=== PATIENT | female | born 2000 | race Caucasian/White ===

== ENCOUNTER 2022-02-04 19:15 | Emergency (ER) | payer MEDICAID, SELFPAY ==
[2022-02-04 19:52] VITALS: BP 121/79; PULSE 70; RESP 16; TEMP 36.8; O2SAT 98; BMI 24.0
[2022-02-04 20:21] LABS: COVID-19 Test Negative (Negative); IDNOW Serial# 16C4AD1C
[2022-02-04 20:23] LABS: IDNOW Serial# BCCEAD1C; Influenza A Negative (Negative); Influenza B2 Negative (Negative); Strep A Nucleic Acid Negative (Negative)
[2022-02-04 22:03] VITALS: BP 119/71; PULSE 61; RESP 14; TEMP 36.9; O2SAT 99
--- NOTE | 2022-02-04 22:28 | ED_ITS ---
HPI - URI/Sore Throat General Chief Complaint: Upper Respiratory Symptoms Stated Complaint: sore throat, chest pain, headaches bodyaches Time Seen by Provider: 02/04/22 21:49 Source: patient Mode of arrival: ambulatory Limitations: no limitations History of Present Illness HPI Narrative: Patient having cold symptoms with sore throat running nose congested coughing 3- 4 days no other family member sick or shortness of breath Related Data Previous Rx's Medication Instructions Recorded cefuroxime axetil 500 mg tablet 500 mg PO BID 7 days #14 tabs 02/04/22 tobramycin 0.3 % eye drops 2 drp ophthalmic (eye) Q4H #5 mL 02/04/22 Allergies Allergy/AdvReac Type Severity Reaction Status Date / Time No Known Allergies Allergy Unverified 11/28/19 17:02 [No Known Allergies*] Review of Systems Review of Systems: Yes all other systems are reviewed and are negative [facility] Social History Social History Advance Directives: No Advance Directives Information Provided: No Physical Exam Vital Signs: Vital Signs: Last Vital Signs Temp 98.4 F 02/04/22 22:03 Pulse 61 02/04/22 22:03 Resp 14 02/04/22 22:03 BP 119/71 02/04/22 22:03 Pulse Ox 99 02/04/22 22:03 O2 Del Method 02/04/22 22:03 BMI result Body Mass Index 24.0 Appearance: Alert. Oriented X3. No acute distress. Eyes: PERRLA, right conjunctiva injected with slight purulent discharge ENT: Pharynx normal. Oral Mucosa moist clear rhinorrhea Neck: Normal inspection. Neck supple. CVS: Normal heart rate and rhythm. Pulses normal. Respiratory: No respiratory distress. Equal air entry bilateral, no wheezing/rales/rhonchi Abdomen: Soft and nontender. Bowel sounds are present, no mass palpable, no CVA tenderness Skin: Skin warm and dry. Normal skin color. Normal skin turgor. Extremities: No lower extremity edema. No calf tenderness Neuro: Oriented X 3. No motor deficit. Medications Administered Discontinued Medications Generic Name Dose Route Start Last Admin Trade Name Freq PRN Reason Stop Dose Admin Cefuroxime Axetil 500 mg 02/04/22 22:30 02/04/22 22:47 Cefuroxime Axetil 500 Mg Tablet PO 02/04/22 22:31 500 mg ONCE ONE Administration Tobramycin Sulfate 2 drop 02/04/22 22:40 02/04/22 22:47 Tobramycin Sulfate 0.3% Vianey Op 5 Ml Btl EYE-RIGHT 02/04/22 22:41 2 drop ONCE ONE Administration MDM - URI/Sore Throat MDM Narrative Medical decision making narrative: Patient with cold symptoms COVID flu RSV strep negative will give patient Ceftin as patient has symptoms advised to follow-up with PCP Differential Diagnosis Differential diagnosis: Likely upper respiratory infection Lab Data Attestation: I reviewed the patient's lab results. Labs: Lab Results 02/04/22 02/04/22 02/04/22 Range/Units 19:56 19:56 19:56 COVID-19 (GIOVANNA) Negative (Negative) COVID-19 Clin Com See Note Influenza Type A (CASSANDRA) Negative (Negative) Influenza Type B (CASSANDRA) Negative (Negative) Influenza A & B Note See Note S. pyogenes GrpA CASSANDRA Negative (Negative) Discharge Plan Discharge Clinical Impression: Upper respiratory infection, Conjunctivitis Patient Disposition: Home, Self-Care Additional Instructions: Keep hydrated Drink plenty of fluids Cough drops as advised Take antibiotic as prescribed Prescriptions: New cefuroxime axetil 500 mg tablet 500 mg PO BID 7 Days Qty: 14 0RF tobramycin 0.3 % drops 2 drp ophthalmic (eye) Q4H Qty: 5 0RF Interventions: ED Discharge Assessment Last Done: 02/04/22 22:50 Discharge Date/Time: 02/04/22 22:52
[2022-02-04] MEDS: Tobramycin Sulfate 0.3% Sol Op 5 ML BTL 2 DROP EYE-RIGHT (22:47)
== END 2022-02-04 22:52 | disposition home or self-care (01) ==
PROVIDERS: Emergency Provider Internal Medicine; PCP Registered Nurse
DX: J06.9 Acute upper respiratory infection, unspecified (principal); H10.9 Unspecified conjunctivitis; Z20.822 Contact with and (suspected) exposure to COVID-19
CPT/HCPCS: 36415; 87502; 87635; 87651; 99283

== ENCOUNTER 2022-02-16 11:54 | Outpatient (REF) | payer MEDICAID, SELFPAY ==
[2022-02-16 13:09] LABS: Hematocrit 37.3 % (37.0-47.0); Hemoglobin 11.7 g/dl (12.0-16.0); Mean Corpuscular HGB Conc 31.4 g/dl (31.0-35.0); Mean Corpuscular Volume 73.4 fL (80.0-98.0); Mean Platelet Volume 9.7 fL (9.4-12.3); Platelet Count 422 X10*3/uL (160-400); Red Blood Count 5.08 X10*6/uL (4.20-5.50); Red Cell Distribution Width 13.7 % (11.0-16.0); White Blood Count 10.5 X10*3/uL (4.8-10.8)
[2022-02-16 15:12] LABS: Alanine Aminotransferase 17 U/L (0-31); Albumin Level 4.8 g/dL (3.5-5.0); Alkaline Phosphatase 87 U/L (39-117); Anion Gap 13 (12-20); Aspartate Amino Transferase 22 U/L (5-31); Bilirubin Direct < 0.2 mg/dL (0.0-0.5); Bilirubin Total 0.2 mg/dL (0.0-1.0); Blood Urea Nitrogen 6 mg/dL (9-16); C Reactive Protein 1.43 mg/dL (< or = 0.50); Calcium 9.8 mg/dL (8.4-10.2); Carbon Dioxide 24 mmol/L (22-29); Chloride 105 mmol/L (96-108); Estimated Glomerular Filt Rate > 60; Glucose Random 75 mg/dL (60-115); Iron 14 mcg/dL (30-160); Lipase 25 U/L (8-78); Percent Iron Saturation 5 % (15-50); Potassium 4.2 mmol/L (3.3-5.1); Sodium 138 mmol/L (135-145); TSH reflex Free T4 0.84 uIU/mL (0.32-4.0); Total Iron Binding Capacity 281 mcg/dL (228-428); Total Protein 8.4 g/dL (6.5-8.0); Unsaturated Iron Binding 267 ug/dL
[2022-02-16 15:25] LABS: Folate 10.3 ng/mL (> or = 4.0); Vitamin B12 627 pg/mL (200-900)
[2022-02-17 14:04] LABS: Transglutaminase Ab IgG <1.0 U/mL; Transglutaminase IgA <1.0 U/mL
[2022-02-17 14:28] LABS: H Pylori Breath Test Negative (Negative)
[2022-02-20 16:38] LABS: Vitamin D 25-OH, D2 <4 ng/mL; Vitamin D 25-OH, D3 20 ng/mL; Vitamin D 25-OH, Total 20 ng/mL (30-100)
== END 2022-02-16 11:55 | disposition home or self-care (01) ==
LOC: HO.LAB 11:54
PROVIDERS: PCP Registered Nurse; Visit Provider Nurse Practitioner Family
DX: K58.9 Irritable bowel syndrome, unspecified (principal); E55.9 Vitamin D deficiency, unspecified; K92.2 Gastrointestinal hemorrhage, unspecified; R10.9 Unspecified abdominal pain; K59.00 Constipation, unspecified; K21.9 Gastro-esophageal reflux disease without esophagitis; R17 Unspecified jaundice; R19.7 Diarrhea, unspecified
CPT/HCPCS: 36415; 80053; 82248; 82306; 82607; 82746; 83013; 83540; 83690; 84443; 85027; 86140; 86364; 99202

== ENCOUNTER 2022-02-19 | Outpatient (REF) | payer MEDICAID, SELFPAY ==
[2022-02-19 13:14] LABS: CDiff Gene PCR NEGATIVE (Negative)
[2022-02-20 12:16] LABS: Campylobacter Not Detected (Not Detect.)
[2022-02-20 12:17] LABS: Adenovirus F 40/41 Not Detected (Not Detect.); Astrovirus Not Detected (Not Detect.); Cryptosporidium Not Detected (Not Detect.); Cyclospora cayetanensis Not Detected (Not Detect.); E. coli EAEC Not Detected (Not Detect.); E. coli EPEC Not Detected (Not Detect.); E. coli ETEC Not Detected (Not Detect.); E. coli STEC Not Detected (Not Detect.); Entamoeba histolytica Not Detected (Not Detect.); Giardia lamblia Not Detected (Not Detect.); Norovirus GI/GII Not Detected (Not Detect.); Plesiomonas shigelloides Not Detected (Not Detect.); Rotavirus A Not Detected (Not Detect.); Sapovirus Not Detected (Not Detect.); Shigella sp./EIEC Not Detected (Not Detect.); Vibrio Not Detected (Not Detect.); Vibrio Cholerae Not Detected (Not Detect.); Yersinia enterocolitica Not Detected (Not Detect.)
[2022-02-20 12:19] LABS: Salmonella Detected (Not Detect.)
== END 2022-02-19 00:01 | disposition home or self-care (01) ==
LOC: HO.LNP
PROVIDERS: Visit Provider Nurse Practitioner Family
DX: R19.7 Diarrhea, unspecified (principal); R10.9 Unspecified abdominal pain
CPT/HCPCS: 82656; 82705; 87177; 87209; 87493; 87507

== ENCOUNTER → 2022-03-23 14:49 | Outpatient (BNVA) | payer MEDICAID, SELFPAY | PROVIDERS: PCP Registered Nurse; Visit Provider Nurse Practitioner Family | DX: K21.9 Gastro-esophageal reflux disease without esophagitis (principal); D64.9 Anemia, unspecified; A09 Infectious gastroenteritis and colitis, unspecified | CPT/HCPCS: 99212 ==

== ENCOUNTER 2022-05-13 14:25 | Outpatient (REF) | payer MEDICAID, SELFPAY ==
--- NOTE | ~2022-05-13 | US_ITS ---
EXAMINATION: US BREAST DIAGNOSTIC, RIGHT CLINICAL INFORMATION: Right breast pain. Patient had rash 3 months ago which was treated with improvement. Breast feels sensitive. COMPARISON: None. TECHNIQUE: Ultrasound of the breast is performed with real-time leblanc scale imaging and color Doppler. FINDINGS: There is no focal suspicious finding. There is no solid mass, architectural abnormality, duct ectasia, or edema in the soft tissue planes. Results are discussed with the patient at time of visit. US/US breast RT limited IMPRESSION: No suspicious right breast ultrasound findings identified. ASSESSMENT: BI-RADS 1: Negative RECOMMENDATION: Clinical follow-up. Begin yearly screening mammography at age 40.
== END 2022-05-13 14:26 | disposition home or self-care (01) ==
LOC: HO.MAMMO 14:25
PROVIDERS: Visit Provider Registered Nurse
DX: N64.4 Mastodynia (principal)
CPT/HCPCS: 76642

== ENCOUNTER 2022-06-10 13:58 | Outpatient (REF) | payer MEDICAID, SELFPAY | END 2022-06-10 13:59 | disposition home or self-care (01) | LOC: HO.LNP 13:58 | PROVIDERS: PCP Registered Nurse; Visit Provider Advanced Practice Midwife | DX: Z01.419 Encounter for gynecological examination (general) (routine) without abnormal findings (principal) | CPT/HCPCS: 0353U; 86780; 86803; 87340; 87389; 87480; 87510; 87660; 88142 ==

== ENCOUNTER 2022-06-10 15:29 | Outpatient (REF) | payer MEDICAID, SELFPAY ==
[2022-06-10 18:00] LABS: CT PCR NOT DETECTED (Not Detect.); NG PCR NOT DETECTED (Not Detect.)
[2022-06-11 10:13] LABS: BV Int Neg Control Negative (Negative)
[2022-06-11 10:14] LABS: BV Int Pos Control Positive (Positive)
[2022-06-13 08:25] LABS: Syphilis Screen Nonreactive (Nonreactive)
[2022-06-13 08:28] LABS: HIV AB/AG Nonreactive (Nonreactive); HIV Num 1 0.07 S/CO (0.00-0.99); Hepatitis B Surface Antigen Negative (Negative); ~HepC Num1 0.23 S/CO (0.00-0.79); ~Hepatitis C Antibody Nonreactive (Nonreactive)
== END 2022-06-10 15:30 | disposition home or self-care (01) ==
LOC: HO.LAB 15:29
PROVIDERS: PCP Registered Nurse; Visit Provider Advanced Practice Midwife
DX: Z11.3 Encounter for screening for infections with a predominantly sexual mode of transmission (principal); Z11.4 Encounter for screening for human immunodeficiency virus [HIV]
CPT/HCPCS: 0353U; 86780; 86803; 87340; 87389; 87480; 87510; 87660

== ENCOUNTER 2022-06-12 21:37 | Emergency (ER) | payer MEDICAID, SELFPAY ==
--- NOTE | ~2022-06-12 | US_ITS ---
EXAMINATION: US PELVIS CLINICAL INFORMATION: Right lower quadrant pain COMPARISON: Concurrent CT abdomen/pelvis TECHNIQUE: Ultrasound of the pelvis is performed using both transabdominal and transvaginal transducers along with Doppler. Transvaginal imaging is performed due to inadequate visualization transabdominally. FINDINGS: Uterus: The uterus is anteverted and measures 8.6 x 4.8 x 5.2 cm. The double wall endometrial thickness is 14 mm. The uterus is smooth in contour and has normal myometrial echogenicity. No visible fibroid. Adnexa: Both ovaries are visualized. There is normal color flow to the adnexa. There is no ovarian torsion. There is no pelvic ascites or fluid collection. Right ovary measures 4.3 x 3.4 x 2 point cm. There are 2 cysts within the right ovary. One of these contains internal echoes dependent debris and measures 2.9 cm favored to represent a hemorrhagic cyst. The other is simple in appearance measuring 2.7 cm. Left ovary measures 2.7 x 1.4 x 2.2 cm. There is an 8.5 x 5.5 x 6.0 cm simple cyst emanating from the left ovary. US/US pelvic complete IMPRESSION: * No evidence of ovarian torsion. * There are 2 cysts within the right ovary, one of which contains internal echoes dependent debris, measuring 2.9 cm. This is favored to represent a hemorrhagic cyst. * There is a 8.5 cm simple cyst emanating from the left ovary. Given the size, and the possibility of incomplete characterization, ACR recommends short interval follow-up ultrasound, or MRI pelvis with contrast within 3 months.
--- NOTE | ~2022-06-12 | CT_ITS ---
EXAMINATION: CT ABDOMEN AND PELVIS WITH CONTRAST CLINICAL INFORMATION: Right lower quadrant pain COMPARISON: Concurrent pelvic ultrasound. TECHNIQUE: Multidetector volumetric images were obtained from the superior aspect of the liver through the pubic symphysis following administration 85 mL of Omnipaque 350 intravenous contrast. Sagittal and coronal reformatted images were obtained on the technologist's workstation. Oral contrast: No This CT examination was performed using dose optimization techniques as appropriate, variously including the following: *Automated exposure control *Adjustment of mA and/or kV according to patient size (this includes techniques or standardized protocols for targeted exams where dose is matched to indication/reason for exam; i.e. extremities or head) *Use of iterative reconstruction technique DLP: 511 mGy-cm FINDINGS: LUNG BASES: The visualized lung bases are unremarkable. LIVER, GALLBLADDER, AND BILIARY TREE: The liver is normal in size, shape, and attenuation. No focal hepatic lesion or biliary ductal dilatation is present. The gallbladder is unremarkable with no evidence of radiopaque gallstones, gallbladder wall thickening, or obvious pericholecystic inflammatory changes. PANCREAS: Unremarkable. SPLEEN: Unremarkable. ADRENAL GLANDS: Unremarkable. KIDNEYS AND URETERS: The kidneys are normal in size, shape, and attenuation. No hydronephrosis, hydroureter, or calculi seen. Minimal bilateral pelviectasis, more pronounced on the right where there is a degree of caliectasis. There is no hydroureter. Suspect this to be within physiologic norm. No perinephric stranding. BLADDER: Unremarkable. GASTROINTESTINAL TRACT: The small and large bowel are unremarkable. The appendix is patulous but air-filled and noninflamed. (See ibrahim images). ABDOMINAL WALL: No significant hernia is appreciated. LYMPH NODES: Normal. VASCULAR: Unremarkable. PELVIC VISCERA: Normal uterus. There is a left adnexal simple fluid attenuating cyst measuring 8.4 x 5.4 x 6.5 cm along the superior aspect of which is the left ovary. There are 2 cysts in the right ovary measuring 3.2 cm and 2.8 cm. The larger of the 2 appears complicated. The smaller cyst is simple in appearance. OSSEOUS STRUCTURES: No acute or suspicious osseous abnormalities. CT/CT abdomen pelvis w IV con IMPRESSION: * There are bilateral ovarian cysts, the largest of which is on the left measuring up to 8.4 cm. The concurrent pelvic ultrasound confirms that the cyst is simple in appearance, and is probably benign. ACR recommends a follow-up ultrasound in 3-6 months for cysts of this size in premenopausal patients. * Right ovarian probable hemorrhagic cyst measuring 3.2 cm. Attention on follow-up.
--- NOTE | ~2022-06-12 | US_ITS ---
EXAMINATION: US PELVIS CLINICAL INFORMATION: Right lower quadrant pain COMPARISON: Concurrent CT abdomen/pelvis TECHNIQUE: Ultrasound of the pelvis is performed using both transabdominal and transvaginal transducers along with Doppler. Transvaginal imaging is performed due to inadequate visualization transabdominally. FINDINGS: Uterus: The uterus is anteverted and measures 8.6 x 4.8 x 5.2 cm. The double wall endometrial thickness is 14 mm. The uterus is smooth in contour and has normal myometrial echogenicity. No visible fibroid. Adnexa: Both ovaries are visualized. There is normal color flow to the adnexa. There is no ovarian torsion. There is no pelvic ascites or fluid collection. Right ovary measures 4.3 x 3.4 x 2 point cm. There are 2 cysts within the right ovary. One of these contains internal echoes dependent debris and measures 2.9 cm favored to represent a hemorrhagic cyst. The other is simple in appearance measuring 2.7 cm. Left ovary measures 2.7 x 1.4 x 2.2 cm. There is an 8.5 x 5.5 x 6.0 cm simple cyst emanating from the left ovary. US/US pelvic ovarian doppler IMPRESSION: * No evidence of ovarian torsion. * There are 2 cysts within the right ovary, one of which contains internal echoes dependent debris, measuring 2.9 cm. This is favored to represent a hemorrhagic cyst. * There is a 8.5 cm simple cyst emanating from the left ovary. Given the size, and the possibility of incomplete characterization, ACR recommends short interval follow-up ultrasound, or MRI pelvis with contrast within 3 months.
[2022-06-12 21:51] VITALS: BP 123/78; PULSE 80; RESP 18; TEMP 36.6; O2SAT 98; BMI 25.7
[2022-06-12 22:42] LABS: MANUAL DIFF FLAG NO
[2022-06-12 22:46] LABS: Basophils Percent Auto 0.5 % (0-2); Eosinophils Absolute Auto 0.3 X10*3/uL (0.0-0.4); Eosinophils Percent Auto 3.4 % (0-4); Hematocrit 32.6 % (37.0-47.0); Hemoglobin 10.3 g/dl (12.0-16.0); Imm Gran Abs Auto 0.02 X10*3/uL (0.00-0.03); Imm Gran Pct Auto 0.2 % (0.0-0.4); Lymphocytes Absolute Auto 1.6 X10*3/uL (1.2-4.9); Lymphocytes Percent Auto 19.1 % (20-40); Mean Corpuscular HGB Conc 31.6 g/dl (31.0-35.0); Mean Corpuscular Hemoglobin 23.1 pg (27.0-33.0); Mean Corpuscular Volume 73.1 fL (80.0-98.0); Mean Platelet Volume 9.4 fL (9.4-12.3); Monocytes Absolute Auto 1.1 X10*3/uL (0.1-1.2); Monocytes Percent Auto 13.7 % (2-11); Neutrophils Absolute Auto 5.2 x10*3/uL (2.0-8.3); Neutrophils Percent Auto 63.1 % (45-73); Platelet Count 328 X10*3/uL (160-400); Red Blood Count 4.46 X10*6/uL (4.20-5.50); White Blood Count 8.3 X10*3/uL (4.8-10.8)
[2022-06-12 22:58] LABS: Alanine Aminotransferase 26 U/L (0-31); Albumin Level 4.4 g/dL (3.5-5.0); Alkaline Phosphatase 78 U/L (39-117); Anion Gap 11 (12-20); Aspartate Amino Transferase 22 U/L (5-31); Bilirubin Direct < 0.2 mg/dL (0.0-0.5); Bilirubin Total 0.2 mg/dL (0.0-1.0); Blood Urea Nitrogen 9 mg/dL (9-16); Calcium 9.3 mg/dL (8.4-10.2); Carbon Dioxide 24 mmol/L (22-29); Chloride 105 mmol/L (96-108); Creatinine Clr Calc Pharmacy 112.5; Estimated Glomerular Filt Rate > 60; Glucose Random 92 mg/dL (60-115); Lipase 24 U/L (8-78); Potassium 4.3 mmol/L (3.3-5.1); Sodium 136 mmol/L (135-145); Total Protein 7.5 g/dL (6.5-8.0)
[2022-06-12 23:55] VITALS: BP 116/67; PULSE 66; RESP 16; TEMP 36.7; O2SAT 97
[2022-06-13 00:01] LABS: Appearance Urine Cloudy; Color Urine Yellow; Glucose Urine UA Negative (Negative); Leukocyte Esterase Urine Trace (Negative); Nitrite Urine Negative (Negative); UMIC TRIGGER UACC YES; Urine Blood Negative (Negative); Urine Ketones Negative (Negative); Urine Protein Negative (Neg-Trace)
[2022-06-13 00:02] LABS: UPreg QC Valid YES; Urine Pregnancy NEGATIVE (NEGATIVE)
[2022-06-13 00:07] LABS: Bacteria Urine Trace (None Seen); Hyaline Casts Urine 0-2 /LPF (0-2); RBC Urine 0-2 /HPF (0-2); WBC Urine 0-5 /HPF (0-5)
--- NOTE | 2022-06-13 00:21 | ED.ABDPAIN ---
HPI - Abdominal Pain General Chief Complaint: Abdominal Pain Stated Complaint: abd pain Time Seen by Provider: 06/12/22 23:42 History of Present Illness HPI narrative: Patient is a 21-year-old female presents today with having 2 day history of abdominal pain. The pain is mainly over the right lower quadrant. It is dull. Associated with decreasing appetite. Patient from home. Her last menstrual period was early May. Patient claims is a chance she could be . There is no fever no chills. No coughing no congestion or upper respiratory symptoms. No diaphoresis. Patient is from home. No change in bowel movement. No radiation of the pain. No history kidney stones in the past. Related Data Previous Rx's Medication Instructions Recorded cholecalciferol (vitamin D3) 50 50 mcg PO DAILY #90 caps 03/23/22 mcg (2,000 unit) capsule ferrous sulfate 325 mg (65 mg 325 mg PO DAILY #90 tabs 03/23/22 iron) tablet desogestrel-e.estradiol 0.15 1 tab PO DAILY #84 tabs 06/10/22 mg-0.02 mg(21)/e.estrad 0.01 mg(5) tablet Allergies Allergy/AdvReac Type Severity Reaction Status Date / Time No Known Allergies Allergy Verified 06/12/22 21:56 [No Known Allergies*] Review of Systems Review of Systems Positive right lower quadrant pain Yes all other systems are reviewed and are negative PMFSH Past Medical History Attestation statement: The following information was validated with the patient. Medical History Alpha-thalassemia Anemia Surgical History S/P tonsillectomy and adenoidectomy Family History Family History Maternal Grandfather Prostate cancer Social History Social History Alcohol intake: never Patient Tobacco Use Status: Former Tobacco user Advance Directives: No Advance Directives Information Provided: No service: No Current occupational status: employed Current occupation: Manufacturing Current occupational exposures/hazards: No Physical Exam ED Vital Signs: Vital Signs - 24 hr 06/12/22 21:51 06/12/22 23:55 Temperature 97.9 F 98.0 F Pulse Rate 80 66 Respiratory Rate 18 16 Blood Pressure 123/78 116/67 Pulse Oximetry 98 97 Oxygen Delivery Method Room Air Room Air BMI result Body Mass Index 25.7 Appearance: Alert. Oriented X3. No acute distress. Eyes: Pupils equal, round and reactive to light. ENT: Pharynx normal. Neck: Normal inspection. Neck supple. No lymph nodes noted. No crepitus CVS: Normal heart rate and rhythm. Pulses normal. Normal S1 and S2 Respiratory: No respiratory distress. Breath sounds normal. No Wheezing. No rales Abdomen: Soft and nontender. No rigidity. No distention. good BS x4 Skin: Skin warm and dry. Normal skin color. Normal skin turgor. Extremities: No lower extremity edema. Neurovascular intact to all extremities. No Lacerations. No Rash Neuro: Oriented X 3. No motor deficit. No sensory deficit. Moving all extermities. No slurred speech Medical Decision Making Medical Decision Making [facility] Narrative: Positive lower abdominal pain. Mainly over the right lower quadrant. Patient is due for her menstruation. Her urine test was negative. No evidence for related issue. An ultrasound of the ovaries was done to rule out the possibility of torsion. CT scan of the abdomen pelvis was done to rule out the possibility of appendicitis. Patient's white count is normal. Urine showed no signs of infection. It did show blood. Less likely to be kidney stone. Currently awaiting final results of the CT scan and ultrasound. In stable condition pain is controlled. Differential Diagnosis Differential Diagnoses: The differential diagnosis associated with the presentation includes related issue, UTI, kidney stone, ovarian torsion, appendicitis Lab Data [facility] Lab Attestation statement: I reviewed the patient's lab results. 06/12/22 22:37 06/12/22 22:36 Labs: Lab Results 06/12/22 06/12/22 06/12/22 Range/Units 22:36 22:37 23:51 WBC 8.3 (4.8-10.8) X10*3/uL RBC 4.46 (4.20-5.50) X10*6/uL Hgb 10.3 L (12.0-16.0) g/dl Hct 32.6 L (37.0-47.0) % MCV 73.1 L (80.0-98.0) fL MCH 23.1 L (27.0-33.0) pg MCHC 31.6 (31.0-35.0) g/dl RDW 14.0 (11.0-16.0) % Plt Count 328 (160-400) X10*3/uL MPV 9.4 (9.4-12.3) fL Immature Gran % (Auto) 0.2 (0.0-0.4) % Neut % (Auto) 63.1 (45-73) % Lymph % (Auto) 19.1 L (20-40) % Stone % (Auto) 13.7 H (2-11) % Eos % (Auto) 3.4 (0-4) % Baso % (Auto) 0.5 (0-2) % Lymph # (Auto) 1.6 (1.2-4.9) X10*3/uL Stone # (Auto) 1.1 (0.1-1.2) X10*3/uL Eos # (Auto) 0.3 (0.0-0.4) X10*3/uL Baso # (Auto) 0.0 (0.0-0.2) X10*3/uL Abs Immat Gran (auto) 0.02 (0.00-0.03) X10*3/uL Absolute Neuts (auto) 5.2 (2.0-8.3) x10*3/uL Absolute Nucleated RBC 0.000 (0.0-0.012) X10*3/uL Nucleated RBC % (auto) 0.0 (0.0-0.2) /100WBC Sodium 136 (135-145) mmol/L Potassium 4.3 (3.3-5.1) mmol/L Chloride 105 (96-108) mmol/L Carbon Dioxide 24 (22-29) mmol/L Anion Gap 11 L (12-20) BUN 9 (9-16) mg/dL Creatinine 0.75 (0.5-1.4) mg/dL Estim Creat Clear Calc 112.5 Estimated GFR > 60 Random Glucose 92 (60-115) mg/dL Calcium 9.3 (8.4-10.2) mg/dL Total Bilirubin 0.2 (0.0-1.0) mg/dL Direct Bilirubin < 0.2 (0.0-0.5) mg/dL AST 22 (5-31) U/L ALT 26 (0-31) U/L Alkaline Phosphatase 78 (39-117) U/L Total Protein 7.5 (6.5-8.0) g/dL Albumin 4.4 (3.5-5.0) g/dL Lipase 24 (8-78) U/L Urine Color Yellow Urine Appearance Cloudy Urine pH 6.0 (5.0-9.0) Ur Specific Wayan 1.010 (1.005-1.025) Urine Protein Negative (Neg-Trace) mg/dL Urine Glucose (UA) Negative (Negative) mg/dL Urine Ketones Negative (Negative) mg/dL Urine Blood Negative (Negative) Urine Nitrite Negative (Negative) Ur Leukocyte Esterase Trace H (Negative) Urine RBC 0-2 (0-2) /HPF Urine WBC 0-5 (0-5) /HPF Ur Squamous Epith Cells 11-20 (0-2) /HPF Urine Bacteria Trace (None Seen) Hyaline Casts 0-2 (0-2) /LPF Urine Test (NEGATIVE) 06/12/22 Range/Units 23:51 WBC (4.8-10.8) X10*3/uL RBC (4.20-5.50) X10*6/uL Hgb (12.0-16.0) g/dl Hct (37.0-47.0) % MCV (80.0-98.0) fL MCH (27.0-33.0) pg MCHC (31.0-35.0) g/dl RDW (11.0-16.0) % Plt Count (160-400) X10*3/uL MPV (9.4-12.3) fL Immature Gran % (Auto) (0.0-0.4) % Neut % (Auto) (45-73) % Lymph % (Auto) (20-40) % Stone % (Auto) (2-11) % Eos % (Auto) (0-4) % Baso % (Auto) (0-2) % Lymph # (Auto) (1.2-4.9) X10*3/uL Stone # (Auto) (0.1-1.2) X10*3/uL Eos # (Auto) (0.0-0.4) X10*3/uL Baso # (Auto) (0.0-0.2) X10*3/uL Abs Immat Gran (auto) (0.00-0.03) X10*3/uL Absolute Neuts (auto) (2.0-8.3) x10*3/uL Absolute Nucleated RBC (0.0-0.012) X10*3/uL Nucleated RBC % (auto) (0.0-0.2) /100WBC Sodium (135-145) mmol/L Potassium (3.3-5.1) mmol/L Chloride (96-108) mmol/L Carbon Dioxide (22-29) mmol/L Anion Gap (12-20) BUN (9-16) mg/dL Creatinine (0.5-1.4) mg/dL Estim Creat Clear Calc Estimated GFR Random Glucose (60-115) mg/dL Calcium (8.4-10.2) mg/dL Total Bilirubin (0.0-1.0) mg/dL Direct Bilirubin (0.0-0.5) mg/dL AST (5-31) U/L ALT (0-31) U/L Alkaline Phosphatase (39-117) U/L Total Protein (6.5-8.0) g/dL Albumin (3.5-5.0) g/dL Lipase (8-78) U/L Urine Color Urine Appearance Urine pH (5.0-9.0) Ur Specific Wayan (1.005-1.025) Urine Protein (Neg-Trace) mg/dL Urine Glucose (UA) (Negative) mg/dL Urine Ketones (Negative) mg/dL Urine Blood (Negative) Urine Nitrite (Negative) Ur Leukocyte Esterase (Negative) Urine RBC (0-2) /HPF Urine WBC (0-5) /HPF Ur Squamous Epith Cells (0-2) /HPF Urine Bacteria (None Seen) Hyaline Casts (0-2) /LPF Urine Test NEGATIVE (NEGATIVE) Discharge Plan Discharge Clinical Impression: Abdominal pain Patient Disposition: Still a Patient Prescriptions: No Action ferrous sulfate 325 mg (65 mg iron) tablet 325 mg PO DAILY Qty: 90 4RF cholecalciferol (vitamin D3) 50 mcg (2,000 unit) capsule 50 mcg PO DAILY Qty: 90 3RF desog-e.estradiol/e.estradiol 0.15-0.02 mgx21 /0.01 mg x 5 tablet 1 tab PO DAILY Qty: 84 4RF
--- NOTE | 2022-06-13 00:25 | PC.NURSE ---
late entry-this rn placed 20g IV R AC. pt pending ct. pt partner at bedside at this time. pt resting on stretcher
[2022-06-13] MEDS: Ketorolac Tromethamine 30 MG/ML VIAL IVPUSH (03:14)
[2022-06-13 03:15] VITALS: BP 113/70; PULSE 67; RESP 16; TEMP 36.6; O2SAT 100
--- NOTE | 2022-06-13 03:21 | PC.NURSE ---
pt reports 6/10 pain at this time. pt medicated according to mar.
--- NOTE | 2022-06-13 03:25 | PC.NURSE ---
iv removed at time of discharge. pt ambulatory at this time. vss. skin pwd. pt provided with discharge packet. pt partner at bedside. pt verbalizes understanding of discharge plan
== END 2022-06-13 03:26 | disposition home or self-care (01) ==
PROVIDERS: Emergency Provider Emergency Medicine Emergency Medical Services; PCP Registered Nurse
DX: R10.31 Right lower quadrant pain (principal); R10.2 Pelvic and perineal pain; Z79.899 Other long term (current) drug therapy
CPT/HCPCS: 36415; 74177; 76856; 80048; 80076; 81001; 81003; 81025; 83690; 85025; 93975; 96374; 99284; J1885

== ENCOUNTER 2022-06-13 17:27 | Emergency (ER) | payer MEDICAID, SELFPAY ==
--- NOTE | ~2022-06-13 | US_ITS ---
EXAMINATION: US ABDOMEN LIMITED CLINICAL INFORMATION: Right upper quadrant/flank. COMPARISON: CT abdomen pelvis earlier today at 1:33 AM TECHNIQUE: Real-time imaging of the right upper quadrant abdominal viscera. FINDINGS: PANCREAS: The pancreas appears unremarkable, without masses or ductal dilatation, with the exception of the tail which is obscured by bowel gas. LIVER: The liver is normal in size. The liver contour is normal. There is mildly increased increased liver parenchymal echogenicity suggesting hepatic steatosis. No focal hepatic lesion. There is no intrahepatic biliary duct dilatation seen. GALLBLADDER: Normal. The gallbladder is physiologically distended without evidence of stones, sludge, polyps, wall thickening or pericholecystic fluid. COMMON BILE DUCT: Normal in caliber measuring 0.3 cm in diameter. RIGHT KIDNEY: Normal. No hydronephrosis. No renal calculi or focal parenchymal lesions. The kidney measures 11.4 cm in maximum dimension. FREE FLUID: None. US/US abdomen limited IMPRESSION: Echogenic liver suggesting hepatic steatosis.
[2022-06-13 18:00] VITALS: BP 127/64; PULSE 102; RESP 20; TEMP 37.8; O2SAT 99; BMI 25.7
--- NOTE | 2022-06-13 18:05 | ED.ABDPAIN ---
HPI - Abdominal Pain General Chief Complaint: Abdominal Pain <CHRISTELLE Akins - Last Filed: 06/13/22 18:07> Stated Complaint: abd pain <CHRISTELLE Akins - Last Filed: 06/13/22 18:07> Time Seen by Provider: 06/13/22 19:35 <CHRISTELLE Akins - Last Filed: 06/13/22 18:07> Source: patient and family (Sister) <Galilea Nur MD - Last Filed: 06/13/22 23:04> Mode of arrival: ambulatory <Galilea Nur MD - Last Filed: 06/13/22 23:04> History of Present Illness HPI narrative: This is a 21-year-old female without significant past medical history who presents with 3 days of worsening right flank/abdominal pain with associated nausea as well as vomiting and she states that this started after she was started on antibiotics by or OBGYN provider for UTI. This is not been associated with any fever, chills, dysuria. Patient endorses that she was seen here last night, she denies any history of renal colic and denies any association with her work. <Galilea Nur MD - Last Filed: 06/13/22 23:04> Related Data Home Medications: Previous Rx's Medication Instructions Recorded cholecalciferol (vitamin D3) 50 50 mcg PO DAILY #90 caps 03/23/22 mcg (2,000 unit) capsule ferrous sulfate 325 mg (65 mg 325 mg PO DAILY #90 tabs 03/23/22 iron) tablet desogestrel-e.estradiol 0.15 1 tab PO DAILY #84 tabs 06/10/22 mg-0.02 mg(21)/e.estrad 0.01 mg(5) tablet ibuprofen 600 mg tablet 600 mg PO Q6H PRN fever or pain 06/13/22 #30 tabs metronidazole 500 mg tablet 500 mg PO BID 7 days #14 tabs 06/13/22 <CHRISTELLE Akins - Last Filed: 06/13/22 18:07> Allergies/Adverse Reactions: Allergies Allergy/AdvReac Type Severity Reaction Status Date / Time No Known Allergies Allergy Verified 06/12/22 21:56 [No Known Allergies*] <CHRISTELLE Akins - Last Filed: 06/13/22 18:07> Review of Systems Review of Systems Pertinent positives and negatives as stated in HPI <Galilea Nur MD - Last Filed: 06/13/22 23:04> PMFSH Past Medical History Source: nursing notes reviewed <Galilea Nur MD - Last Filed: 06/13/22 23:04> Medical History: Medical History Alpha-thalassemia Anemia <CHRISTELLE Aikns - Last Filed: 06/13/22 18:07> Surgical History: Surgical History S/P tonsillectomy and adenoidectomy <CHRISTELLE Akins - Last Filed: 06/13/22 18:07> Family History Family History: Family History Maternal Grandfather Prostate cancer <CHRISTELLE Akins - Last Filed: 06/13/22 18:07> Social History Social History: Social History Alcohol intake: never Patient Tobacco Use Status: Former Tobacco user Smoked in Last 30 Days: No Use of substances other than those prescribed or required for medical reasons: No Advance Directives: No Advance Directives Information Provided: No Patient : No service: No Current occupational status: employed Current occupation: Manufacturing Current occupational exposures/hazards: No <CHRISTELLE Akins - Last Filed: 06/13/22 18:07> Physical Exam ED Vital Signs: Vital Signs - 24 hr 06/13/22 18:00 06/13/22 19:59 Temperature 100.0 F 98.6 F Pulse Rate 102 H 94 Respiratory Rate 20 18 Blood Pressure 127/64 108/70 Pulse Oximetry 99 99 Oxygen Delivery Method Room Air Room Air BMI result Body Mass Index 25.7 <CHRISTELLE Akins - Last Filed: 06/13/22 18:07> Vital Signs - 24 hr 06/13/22 18:00 06/13/22 19:59 Temperature 100.0 F 98.6 F Pulse Rate 102 H 94 Respiratory Rate 20 18 Blood Pressure 127/64 108/70 Pulse Oximetry 99 99 Oxygen Delivery Method Room Air Room Air BMI result Body Mass Index 25.7 VITAL SIGNS: Reviewed. GENERAL: Well developed, well nourished, in no acute distress. HEAD: Normocephalic/atraumatic EYES: PERRLA, EOMI, there is periorbital eye edema EARS: Ext canals without abnormality NOSE: Nares patent bilateral OROPHARYNX: no oral lesions noted, posterior pharynx clear NECK: Supple, no adenopathy LUNGS: Normal breath sounds. No adventitious sounds or accessory muscle use. SpO2<99> CARDIOVASCULAR: Regular rate and rhythm without noted murmurs ABDOMEN: Soft, mild pain at mid right abdomen, non-distended with bowel sounds, no CVA tenderness. MUSCULOSKELETAL: No tenderness, deformities, or effusions noted on gross inspection. EXTREMITIES: No cyanosis, clubbing or edema. SKIN: Inspection of the skin reveals no rashes NEUROLOGIC: Alert and oriented x 4. Strength and sensation to light touch were grossly intact x 4. <Galilea Nur MD - Last Filed: 06/13/22 23:04> Course Course Course Narrative: RME - 21 yo female with recently diagnosed bilateral ovarian cysts presents back to the ER with 10/10 right lower abdominal pain, nausea that restarted shortly after discharge. No improvement with iburprofen or the IV medication given here last night. <CHRISTELLE Akins - Last Filed: 06/13/22 18:07> Medical Decision Making Medical Decision Making MDM Narrative: 21-year-old female without significant past medical history was recently evaluated by her OBGYN provider and I have reviewed that note which demonstrates that in fact patient was started on control and I do not see any new prescriptions from that note. I also reviewed all documentation and testing from her visit last night at which time she had ectopic/ovarian torsion/uterine etiologies ruled out. Although there were were cyst located on each ovary there was guidance given for follow-up and patient now presents with pain once again on the right side. She denies any traumatic event. I reviewed all investigations and patient's labs are chronically stable with the exception an elevated potassium level, however this appears to be secondary to hemolysis as documented by the lab and given that the patient was recently started on Flagyl she may be experiencing nausea related with this. I will obtain an ultrasound the gallbladder but otherwise patient will be discharged home in stable condition with instructions to follow-up with her OBGYN and/or her primary care per 2052: Nursing came to me and stated that the patient does not feel that ?I know what I am talking about and is requesting a 2nd opinion. Unfortunately, there is no unavailable at this time. Will proceed with patient's workup. 2199: Review of all investigations negative for acute findings, although I suspect that the elevated potassium is secondary to hemolysis, I am repeating the BMP. 2299: Repeat BMP shows complete resolution of elevated potassium levels, although this was likely elevated from hemolysis. Combination analgesics were provided. All results discussed with the patient and she was informed that no other identified etiologies for her pain were noted. <Galilea Nur MD - Last Filed: 06/13/22 23:04> Differential Diagnosis Please see the discussion above <Galilea Nur MD - Last Filed: 06/13/22 23:04> Lab Data Please see the discussion above <Galilea Nur MD - Last Filed: 06/13/22 23:04> Result Diagrams: 06/13/22 18:25 06/13/22 18:25 <CHRISTELLE Akins - Last Filed: 06/13/22 18:07> Labs: Lab Results 06/13/22 06/13/22 06/13/22 Range/Units 18:25 18:25 18:25 WBC 9.9 (4.8-10.8) X10*3/uL RBC 4.75 (4.20-5.50) X10*6/uL Hgb 11.2 L (12.0-16.0) g/dl Hct 35.7 L (37.0-47.0) % MCV 75.2 L (80.0-98.0) fL MCH 23.6 L (27.0-33.0) pg MCHC 31.4 (31.0-35.0) g/dl RDW 14.2 (11.0-16.0) % Plt Count 348 (160-400) X10*3/uL MPV 10.5 (9.4-12.3) fL Immature Gran % (Auto) 0.3 (0.0-0.4) % Neut % (Auto) 64.0 (45-73) % Lymph % (Auto) 19.5 L (20-40) % Whitfield % (Auto) 13.6 H (2-11) % Eos % (Auto) 2.2 (0-4) % Baso % (Auto) 0.4 (0-2) % Lymph # (Auto) 1.9 (1.2-4.9) X10*3/uL Whitfield # (Auto) 1.4 H (0.1-1.2) X10*3/uL Eos # (Auto) 0.2 (0.0-0.4) X10*3/uL Baso # (Auto) 0.0 (0.0-0.2) X10*3/uL Abs Immat Gran (auto) 0.03 (0.00-0.03) X10*3/uL Absolute Neuts (auto) 6.4 (2.0-8.3) x10*3/uL Absolute Nucleated RBC 0.000 (0.0-0.012) X10*3/uL Nucleated RBC % (auto) 0.0 (0.0-0.2) /100WBC Sodium 133 L (135-145) mmol/L Potassium 5.3 H D (3.3-5.1) mmol/L Chloride 106 (96-108) mmol/L Carbon Dioxide 18 L (22-29) mmol/L Anion Gap 14 (12-20) BUN 8 L (9-16) mg/dL Creatinine 0.73 (0.5-1.4) mg/dL Estim Creat Clear Calc 115.5 Estimated GFR > 60 Random Glucose 85 (60-115) mg/dL Calcium 9.0 (8.4-10.2) mg/dL Magnesium 2.4 (1.6-2.6) mg/dL Total Bilirubin 0.2 (0.0-1.0) mg/dL Direct Bilirubin < 0.2 (0.0-0.5) mg/dL AST 36 H (5-31) U/L ALT 25 (0-31) U/L Alkaline Phosphatase 89 (39-117) U/L Total Protein 8.1 H (6.5-8.0) g/dL Albumin 4.3 (3.5-5.0) g/dL Lipase 38 (8-78) U/L Urine Color Yellow Urine Appearance Clear Urine pH 6.0 (5.0-9.0) Ur Specific Kelley 1.010 (1.005-1.025) Urine Protein Negative (Neg-Trace) mg/dL Urine Glucose (UA) Negative (Negative) mg/dL Urine Ketones Negative (Negative) mg/dL Urine Blood Small (1+) H (Negative) Urine Nitrite Negative (Negative) Ur Leukocyte Esterase Trace H (Negative) Urine RBC 0-2 (0-2) /HPF Urine WBC 0-5 (0-5) /HPF Ur Squamous Epith Cells 3-5 (0-2) /HPF Urine Bacteria None Seen (None Seen) Hyaline Casts 0-2 (0-2) /LPF Urine Test (NEGATIVE) Monoscreen (Negative) Influenza Type A (PCR) (Negative) Influenza Type B (PCR) (Negative) RSV RNA Qual (PCR) (Negative) SARS-CoV-2 RNA (RT-PCR) (Negative) 06/13/22 06/13/22 06/13/22 Range/Units 18:25 20:05 20:16 WBC (4.8-10.8) X10*3/uL RBC (4.20-5.50) X10*6/uL Hgb (12.0-16.0) g/dl Hct (37.0-47.0) % MCV (80.0-98.0) fL MCH (27.0-33.0) pg MCHC (31.0-35.0) g/dl RDW (11.0-16.0) % Plt Count (160-400) X10*3/uL MPV (9.4-12.3) fL Immature Gran % (Auto) (0.0-0.4) % Neut % (Auto) (45-73) % Lymph % (Auto) (20-40) % Whitfield % (Auto) (2-11) % Eos % (Auto) (0-4) % Baso % (Auto) (0-2) % Lymph # (Auto) (1.2-4.9) X10*3/uL Whitfield # (Auto) (0.1-1.2) X10*3/uL Eos # (Auto) (0.0-0.4) X10*3/uL Baso # (Auto) (0.0-0.2) X10*3/uL Abs Immat Gran (auto) (0.00-0.03) X10*3/uL Absolute Neuts (auto) (2.0-8.3) x10*3/uL Absolute Nucleated RBC (0.0-0.012) X10*3/uL Nucleated RBC % (auto) (0.0-0.2) /100WBC Sodium (135-145) mmol/L Potassium (3.3-5.1) mmol/L Chloride (96-108) mmol/L Carbon Dioxide (22-29) mmol/L Anion Gap (12-20) BUN (9-16) mg/dL Creatinine (0.5-1.4) mg/dL Estim Creat Clear Calc Estimated GFR Random Glucose (60-115) mg/dL Calcium (8.4-10.2) mg/dL Magnesium (1.6-2.6) mg/dL Total Bilirubin (0.0-1.0) mg/dL Direct Bilirubin (0.0-0.5) mg/dL AST (5-31) U/L ALT (0-31) U/L Alkaline Phosphatase (39-117) U/L Total Protein (6.5-8.0) g/dL Albumin (3.5-5.0) g/dL Lipase (8-78) U/L Urine Color Urine Appearance Urine pH (5.0-9.0) Ur Specific Kelley (1.005-1.025) Urine Protein (Neg-Trace) mg/dL Urine Glucose (UA) (Negative) mg/dL Urine Ketones (Negative) mg/dL Urine Blood (Negative) Urine Nitrite (Negative) Ur Leukocyte Esterase (Negative) Urine RBC (0-2) /HPF Urine WBC (0-5) /HPF Ur Squamous Epith Cells (0-2) /HPF Urine Bacteria (None Seen) Hyaline Casts (0-2) /LPF Urine Test NEGATIVE (NEGATIVE) Monoscreen Negative (Negative) Influenza Type A (PCR) NEGATIVE (Negative) Influenza Type B (PCR) NEGATIVE (Negative) RSV RNA Qual (PCR) NEGATIVE (Negative) SARS-CoV-2 RNA (RT-PCR) NEGATIVE (Negative) 06/13/22 Range/Units 22:20 WBC (4.8-10.8) X10*3/uL RBC (4.20-5.50) X10*6/uL Hgb (12.0-16.0) g/dl Hct (37.0-47.0) % MCV (80.0-98.0) fL MCH (27.0-33.0) pg MCHC (31.0-35.0) g/dl RDW (11.0-16.0) % Plt Count (160-400) X10*3/uL MPV (9.4-12.3) fL Immature Gran % (Auto) (0.0-0.4) % Neut % (Auto) (45-73) % Lymph % (Auto) (20-40) % Whitfield % (Auto) (2-11) % Eos % (Auto) (0-4) % Baso % (Auto) (0-2) % Lymph # (Auto) (1.2-4.9) X10*3/uL Whitfield # (Auto) (0.1-1.2) X10*3/uL Eos # (Auto) (0.0-0.4) X10*3/uL Baso # (Auto) (0.0-0.2) X10*3/uL Abs Immat Gran (auto) (0.00-0.03) X10*3/uL Absolute Neuts (auto) (2.0-8.3) x10*3/uL Absolute Nucleated RBC (0.0-0.012) X10*3/uL Nucleated RBC % (auto) (0.0-0.2) /100WBC Sodium 136 (135-145) mmol/L Potassium 4.1 D (3.3-5.1) mmol/L Chloride 109 H (96-108) mmol/L Carbon Dioxide 18 L (22-29) mmol/L Anion Gap 13 (12-20) BUN 7 L (9-16) mg/dL Creatinine 0.67 (0.5-1.4) mg/dL Estim Creat Clear Calc 125.8 Estimated GFR > 60 Random Glucose 97 (60-115) mg/dL Calcium 8.3 L D (8.4-10.2) mg/dL Magnesium (1.6-2.6) mg/dL Total Bilirubin (0.0-1.0) mg/dL Direct Bilirubin (0.0-0.5) mg/dL AST (5-31) U/L ALT (0-31) U/L Alkaline Phosphatase (39-117) U/L Total Protein (6.5-8.0) g/dL Albumin (3.5-5.0) g/dL Lipase (8-78) U/L Urine Color Urine Appearance Urine pH (5.0-9.0) Ur Specific Kelley (1.005-1.025) Urine Protein (Neg-Trace) mg/dL Urine Glucose (UA) (Negative) mg/dL Urine Ketones (Negative) mg/dL Urine Blood (Negative) Urine Nitrite (Negative) Ur Leukocyte Esterase (Negative) Urine RBC (0-2) /HPF Urine WBC (0-5) /HPF Ur Squamous Epith Cells (0-2) /HPF Urine Bacteria (None Seen) Hyaline Casts (0-2) /LPF Urine Test (NEGATIVE) Monoscreen (Negative) Influenza Type A (PCR) (Negative) Influenza Type B (PCR) (Negative) RSV RNA Qual (PCR) (Negative) SARS-CoV-2 RNA (RT-PCR) (Negative) <CHRISTELLE Akins - Last Filed: 06/13/22 18:07> Lab Results 06/13/22 06/13/22 06/13/22 Range/Units 18:25 18:25 18:25 WBC 9.9 (4.8-10.8) X10*3/uL RBC 4.75 (4.20-5.50) X10*6/uL Hgb 11.2 L (12.0-16.0) g/dl Hct 35.7 L (37.0-47.0) % MCV 75.2 L (80.0-98.0) fL MCH 23.6 L (27.0-33.0) pg MCHC 31.4 (31.0-35.0) g/dl RDW 14.2 (11.0-16.0) % Plt Count 348 (160-400) X10*3/uL MPV 10.5 (9.4-12.3) fL Immature Gran % (Auto) 0.3 (0.0-0.4) % Neut % (Auto) 64.0 (45-73) % Lymph % (Auto) 19.5 L (20-40) % Whitfield % (Auto) 13.6 H (2-11) % Eos % (Auto) 2.2 (0-4) % Baso % (Auto) 0.4 (0-2) % Lymph # (Auto) 1.9 (1.2-4.9) X10*3/uL Whitfield # (Auto) 1.4 H (0.1-1.2) X10*3/uL Eos # (Auto) 0.2 (0.0-0.4) X10*3/uL Baso # (Auto) 0.0 (0.0-0.2) X10*3/uL Abs Immat Gran (auto) 0.03 (0.00-0.03) X10*3/uL Absolute Neuts (auto) 6.4 (2.0-8.3) x10*3/uL Absolute Nucleated RBC 0.000 (0.0-0.012) X10*3/uL Nucleated RBC % (auto) 0.0 (0.0-0.2) /100WBC Sodium 133 L (135-145) mmol/L Potassium 5.3 H D (3.3-5.1) mmol/L Chloride 106 (96-108) mmol/L Carbon Dioxide 18 L (22-29) mmol/L Anion Gap 14 (12-20) BUN 8 L (9-16) mg/dL Creatinine 0.73 (0.5-1.4) mg/dL Estim Creat Clear Calc 115.5 Estimated GFR > 60 Random Glucose 85 (60-115) mg/dL Calcium 9.0 (8.4-10.2) mg/dL Magnesium 2.4 (1.6-2.6) mg/dL Total Bilirubin 0.2 (0.0-1.0) mg/dL Direct Bilirubin < 0.2 (0.0-0.5) mg/dL AST 36 H (5-31) U/L ALT 25 (0-31) U/L Alkaline Phosphatase 89 (39-117) U/L Total Protein 8.1 H (6.5-8.0) g/dL Albumin 4.3 (3.5-5.0) g/dL Lipase 38 (8-78) U/L Urine Color Yellow Urine Appearance Clear Urine pH 6.0 (5.0-9.0) Ur Specific Kelley 1.010 (1.005-1.025) Urine Protein Negative (Neg-Trace) mg/dL Urine Glucose (UA) Negative (Negative) mg/dL Urine Ketones Negative (Negative) mg/dL Urine Blood Small (1+) H (Negative) Urine Nitrite Negative (Negative) Ur Leukocyte Esterase Trace H (Negative) Urine RBC 0-2 (0-2) /HPF Urine WBC 0-5 (0-5) /HPF Ur Squamous Epith Cells 3-5 (0-2) /HPF Urine Bacteria None Seen (None Seen) Hyaline Casts 0-2 (0-2) /LPF Urine Test (NEGATIVE) Monoscreen (Negative) Influenza Type A (PCR) (Negative) Influenza Type B (PCR) (Negative) RSV RNA Qual (PCR) (Negative) SARS-CoV-2 RNA (RT-PCR) (Negative) 06/13/22 06/13/22 06/13/22 Range/Units 18:25 20:05 20:16 WBC (4.8-10.8) X10*3/uL RBC (4.20-5.50) X10*6/uL Hgb (12.0-16.0) g/dl Hct (37.0-47.0) % MCV (80.0-98.0) fL MCH (27.0-33.0) pg MCHC (31.0-35.0) g/dl RDW (11.0-16.0) % Plt Count (160-400) X10*3/uL MPV (9.4-12.3) fL Immature Gran % (Auto) (0.0-0.4) % Neut % (Auto) (45-73) % Lymph % (Auto) (20-40) % Whitfield % (Auto) (2-11) % Eos % (Auto) (0-4) % Baso % (Auto) (0-2) % Lymph # (Auto) (1.2-4.9) X10*3/uL Whitfield # (Auto) (0.1-1.2) X10*3/uL Eos # (Auto) (0.0-0.4) X10*3/uL Baso # (Auto) (0.0-0.2) X10*3/uL Abs Immat Gran (auto) (0.00-0.03) X10*3/uL Absolute Neuts (auto) (2.0-8.3) x10*3/uL Absolute Nucleated RBC (0.0-0.012) X10*3/uL Nucleated RBC % (auto) (0.0-0.2) /100WBC Sodium (135-145) mmol/L Potassium (3.3-5.1) mmol/L Chloride (96-108) mmol/L Carbon Dioxide (22-29) mmol/L Anion Gap (12-20) BUN (9-16) mg/dL Creatinine (0.5-1.4) mg/dL Estim Creat Clear Calc Estimated GFR Random Glucose (60-115) mg/dL Calcium (8.4-10.2) mg/dL Magnesium (1.6-2.6) mg/dL Total Bilirubin (0.0-1.0) mg/dL Direct Bilirubin (0.0-0.5) mg/dL AST (5-31) U/L ALT (0-31) U/L Alkaline Phosphatase (39-117) U/L Total Protein (6.5-8.0) g/dL Albumin (3.5-5.0) g/dL Lipase (8-78) U/L Urine Color Urine Appearance Urine pH (5.0-9.0) Ur Specific Kelley (1.005-1.025) Urine Protein (Neg-Trace) mg/dL Urine Glucose (UA) (Negative) mg/dL Urine Ketones (Negative) mg/dL Urine Blood (Negative) Urine Nitrite (Negative) Ur Leukocyte Esterase (Negative) Urine RBC (0-2) /HPF Urine WBC (0-5) /HPF Ur Squamous Epith Cells (0-2) /HPF Urine Bacteria (None Seen) Hyaline Casts (0-2) /LPF Urine Test NEGATIVE (NEGATIVE) Monoscreen Negative (Negative) Influenza Type A (PCR) NEGATIVE (Negative) Influenza Type B (PCR) NEGATIVE (Negative) RSV RNA Qual (PCR) NEGATIVE (Negative) SARS-CoV-2 RNA (RT-PCR) NEGATIVE (Negative) 06/13/22 Range/Units 22:20 WBC (4.8-10.8) X10*3/uL RBC (4.20-5.50) X10*6/uL Hgb (12.0-16.0) g/dl Hct (37.0-47.0) % MCV (80.0-98.0) fL MCH (27.0-33.0) pg MCHC (31.0-35.0) g/dl RDW (11.0-16.0) % Plt Count (160-400) X10*3/uL MPV (9.4-12.3) fL Immature Gran % (Auto) (0.0-0.4) % Neut % (Auto) (45-73) % Lymph % (Auto) (20-40) % Whitfield % (Auto) (2-11) % Eos % (Auto) (0-4) % Baso % (Auto) (0-2) % Lymph # (Auto) (1.2-4.9) X10*3/uL Whitfield # (Auto) (0.1-1.2) X10*3/uL Eos # (Auto) (0.0-0.4) X10*3/uL Baso # (Auto) (0.0-0.2) X10*3/uL Abs Immat Gran (auto) (0.00-0.03) X10*3/uL Absolute Neuts (auto) (2.0-8.3) x10*3/uL Absolute Nucleated RBC (0.0-0.012) X10*3/uL Nucleated RBC % (auto) (0.0-0.2) /100WBC Sodium 136 (135-145) mmol/L Potassium 4.1 D (3.3-5.1) mmol/L Chloride 109 H (96-108) mmol/L Carbon Dioxide 18 L (22-29) mmol/L Anion Gap 13 (12-20) BUN 7 L (9-16) mg/dL Creatinine 0.67 (0.5-1.4) mg/dL Estim Creat Clear Calc 125.8 Estimated GFR > 60 Random Glucose 97 (60-115) mg/dL Calcium 8.3 L D (8.4-10.2) mg/dL Magnesium (1.6-2.6) mg/dL Total Bilirubin (0.0-1.0) mg/dL Direct Bilirubin (0.0-0.5) mg/dL AST (5-31) U/L ALT (0-31) U/L Alkaline Phosphatase (39-117) U/L Total Protein (6.5-8.0) g/dL Albumin (3.5-5.0) g/dL Lipase (8-78) U/L Urine Color Urine Appearance Urine pH (5.0-9.0) Ur Specific Kelley (1.005-1.025) Urine Protein (Neg-Trace) mg/dL Urine Glucose (UA) (Negative) mg/dL Urine Ketones (Negative) mg/dL Urine Blood (Negative) Urine Nitrite (Negative) Ur Leukocyte Esterase (Negative) Urine RBC (0-2) /HPF Urine WBC (0-5) /HPF Ur Squamous Epith Cells (0-2) /HPF Urine Bacteria (None Seen) Hyaline Casts (0-2) /LPF Urine Test (NEGATIVE) Monoscreen (Negative) Influenza Type A (PCR) (Negative) Influenza Type B (PCR) (Negative) RSV RNA Qual (PCR) (Negative) SARS-CoV-2 RNA (RT-PCR) (Negative) <Galilea Nur MD - Last Filed: 06/13/22 23:04> Radiology Impression Radiologist Impression: My interpretation is in agreement with radiology's impression of the imaging studies. <Galilea Nur MD - Last Filed: 06/13/22 23:04> Medications Administered Discontinued Medications Generic Name Dose Route Start Last Admin Trade Name Freq PRN Reason Stop Dose Admin Acetaminophen 975 mg 06/13/22 22:02 06/13/22 22:15 Acetaminophen 325 Mg Tablet PO 06/13/22 22:03 975 mg ONCE ONE Administration Sodium Chloride 1,000 mls @ 999 mls/hr 06/13/22 19:45 06/13/22 21:33 Ns IV 06/13/22 20:45 Infused .Q1H1M AMRITA Infusion Ketorolac Tromethamine 15 mg 06/13/22 22:02 06/13/22 22:15 Ketorolac Tromethamine 30 Mg/Ml Vial IVPUSH 06/13/22 22:03 15 mg ONCE ONE Administration <CHRISTELLE Akins - Last Filed: 06/13/22 18:07> Medications Administered Discontinued Medications Generic Name Dose Route Start Last Admin Trade Name Freq PRN Reason Stop Dose Admin Acetaminophen 975 mg 06/13/22 22:02 06/13/22 22:15 Acetaminophen 325 Mg Tablet PO 06/13/22 22:03 975 mg ONCE ONE Administration Sodium Chloride 1,000 mls @ 999 mls/hr 06/13/22 19:45 06/13/22 21:33 Ns IV 06/13/22 20:45 Infused .Q1H1M AMRITA Infusion Ketorolac Tromethamine 15 mg 06/13/22 22:02 06/13/22 22:15 Ketorolac Tromethamine 30 Mg/Ml Vial IVPUSH 06/13/22 22:03 15 mg ONCE ONE Administration <Galilea Nur MD - Last Filed: 06/13/22 23:04> Discharge Plan Discharge Clinical Impression: Abdominal discomfort <CHRISTELLE Akins - Last Filed: 06/13/22 18:07> Patient Disposition: Home, Self-Care <CHRISTELLE Akins - Last Filed: 06/13/22 18:07> Instructions: Abdominal Pain (ED) <CHRISTELLE Akins - Last Filed: 06/13/22 18:07> Additional Instructions: Recommend [id number] Tylenol/ibuprofen as needed for pain control. Follow-up with your OBGYN Return to the ER for any worsening symptoms. <CHRISTELLE Akins - Last Filed: 06/13/22 18:07> Prescriptions: No Action metronidazole 500 mg tablet 500 mg PO BID 7 Days Qty: 14 0RF Rx Instructions: Take with food, Avoid alcohol and vinegar products ibuprofen 600 mg tablet 600 mg PO Q6H PRN (Reason: fever or pain) Qty: 30 0RF ferrous sulfate 325 mg (65 mg iron) tablet 325 mg PO DAILY Qty: 90 4RF cholecalciferol (vitamin D3) 50 mcg (2,000 unit) capsule 50 mcg PO DAILY Qty: 90 3RF desog-e.estradiol/e.estradiol 0.15-0.02 mgx21 /0.01 mg x 5 tablet 1 tab PO DAILY Qty: 84 4RF <CHRISTELLE Akins - Last Filed: 06/13/22 18:07> Referrals: [facility] [Primary Care Provider] - <CHRISTELLE Akins - Last Filed: 06/13/22 18:07>
[2022-06-13 18:35] LABS: MANUAL DIFF FLAG NO
[2022-06-13 18:40] LABS: Appearance Urine Clear; Color Urine Yellow; Glucose Urine UA Negative (Negative); Leukocyte Esterase Urine Trace (Negative); Nitrite Urine Negative (Negative); UMIC TRIGGER UACC YES; Urine Blood Small (1+) (Negative); Urine Ketones Negative (Negative); Urine Protein Negative (Neg-Trace)
[2022-06-13 18:42] LABS: Basophils Percent Auto 0.4 % (0-2); Eosinophils Absolute Auto 0.2 X10*3/uL (0.0-0.4); Eosinophils Percent Auto 2.2 % (0-4); Hematocrit 35.7 % (37.0-47.0); Hemoglobin 11.2 g/dl (12.0-16.0); Imm Gran Abs Auto 0.03 X10*3/uL (0.00-0.03); Imm Gran Pct Auto 0.3 % (0.0-0.4); Lymphocytes Absolute Auto 1.9 X10*3/uL (1.2-4.9); Lymphocytes Percent Auto 19.5 % (20-40); Mean Corpuscular HGB Conc 31.4 g/dl (31.0-35.0); Mean Corpuscular Hemoglobin 23.6 pg (27.0-33.0); Mean Corpuscular Volume 75.2 fL (80.0-98.0); Mean Platelet Volume 10.5 fL (9.4-12.3); Monocytes Absolute Auto 1.4 X10*3/uL (0.1-1.2); Monocytes Percent Auto 13.6 % (2-11); Neutrophils Absolute Auto 6.4 x10*3/uL (2.0-8.3); Platelet Count 348 X10*3/uL (160-400); Red Blood Count 4.75 X10*6/uL (4.20-5.50); Red Cell Distribution Width 14.2 % (11.0-16.0); UPreg QC Valid YES; Urine Pregnancy NEGATIVE (NEGATIVE); White Blood Count 9.9 X10*3/uL (4.8-10.8)
[2022-06-13 18:51] LABS: Bacteria Urine None Seen (None Seen); Hyaline Casts Urine 0-2 /LPF (0-2); RBC Urine 0-2 /HPF (0-2); WBC Urine 0-5 /HPF (0-5)
[2022-06-13 19:19] LABS: Alanine Aminotransferase 25 U/L (0-31); Albumin Level 4.3 g/dL (3.5-5.0); Alkaline Phosphatase 89 U/L (39-117); Anion Gap 14 (12-20); Aspartate Amino Transferase 36 U/L (5-31); Bilirubin Direct < 0.2 mg/dL (0.0-0.5); Bilirubin Total 0.2 mg/dL (0.0-1.0); Blood Urea Nitrogen 8 mg/dL (9-16); Carbon Dioxide 18 mmol/L (22-29); Chloride 106 mmol/L (96-108); Creatinine Clr Calc Pharmacy 115.5; Estimated Glomerular Filt Rate > 60; Glucose Random 85 mg/dL (60-115); Lipase 38 U/L (8-78); Magnesium 2.4 mg/dL (1.6-2.6); Potassium 5.3 mmol/L (3.3-5.1); Sodium 133 mmol/L (135-145); Total Protein 8.1 g/dL (6.5-8.0)
[2022-06-13 19:59] VITALS: BP 108/70; PULSE 94; RESP 18; TEMP 37; O2SAT 99
[2022-06-13] MEDS: 0.9 % Sodium Chloride 1,000 ML 999 ML IV (20:23)
--- NOTE | 2022-06-13 20:24 | PC.NURSE ---
IV inserted, fluids hanging per order. labs sent
[2022-06-13 20:52] LABS: Influenza A PCR NEGATIVE (Negative); Influenza B PCR NEGATIVE (Negative); Resp Syncy Virus RNA Qual PCR NEGATIVE (Negative); SARS COV2 PCR INHOUSE NEGATIVE (Negative)
[2022-06-13 20:57] LABS: Monotest Negative (Negative)
[2022-06-13] MEDS: Acetaminophen 325 MG TABLET 975 MG PO (22:15)
[2022-06-13] MEDS: Ketorolac Tromethamine 30 MG/ML VIAL 15 MG IVPUSH (22:15)
[2022-06-13 22:50] LABS: Anion Gap 13 (12-20); Blood Urea Nitrogen 7 mg/dL (9-16); Calcium 8.3 mg/dL (8.4-10.2); Carbon Dioxide 18 mmol/L (22-29); Chloride 109 mmol/L (96-108); Creatinine Clr Calc Pharmacy 125.8; Estimated Glomerular Filt Rate > 60; Glucose Random 97 mg/dL (60-115); Potassium 4.1 mmol/L (3.3-5.1); Sodium 136 mmol/L (135-145)
== END 2022-06-13 23:18 | disposition home or self-care (01) ==
PROVIDERS: Physician Assistant; Emergency Provider Student in an Organized Health Care Education/Training Program
DX: R10.13 Epigastric pain (principal); R10.31 Right lower quadrant pain; Z20.822 Contact with and (suspected) exposure to COVID-19; Z20.828 Contact with and (suspected) exposure to other viral communicable diseases; Z79.899 Other long term (current) drug therapy; Z87.891 Personal history of nicotine dependence
CPT/HCPCS: 0241U; 36415; 76705; 80048; 80076; 81001; 81025; 83690; 83735; 85025; 86308; 96361; 96374; 99284; 99285; J1885

== ENCOUNTER 2022-09-23 13:11 | Outpatient (REF) | payer MEDICAID, SELFPAY ==
[2022-09-23 15:22] LABS: Alanine Aminotransferase 25 U/L (0-31); Albumin Level 4.6 g/dL (3.5-5.0); Alkaline Phosphatase 78 U/L (39-117); Aspartate Amino Transferase 20 U/L (5-31); Lipase 24 U/L (8-78); Total Protein 8.1 g/dL (6.5-8.0)
[2022-09-23 15:54] LABS: Folate 14.2 ng/mL (> or = 4.0); Vitamin B12 383 pg/mL (200-900)
[2022-09-23 16:32] LABS: Bilirubin Direct 0.1 mg/dL (0.0-0.5); Bilirubin Total 0.3 mg/dL (0.0-1.0)
[2022-09-29 12:44] LABS: Vitamin D 25-OH, D2 <4 ng/mL; Vitamin D 25-OH, D3 21 ng/mL; Vitamin D 25-OH, Total 21 ng/mL (30-100)
== END 2022-09-23 13:12 | disposition home or self-care (01) ==
LOC: HO.LAB 13:11
PROVIDERS: PCP Registered Nurse; Visit Provider Nurse Practitioner Family
DX: R10.9 Unspecified abdominal pain (principal); E55.9 Vitamin D deficiency, unspecified; R19.7 Diarrhea, unspecified
CPT/HCPCS: 36415; 80076; 82306; 82607; 82746; 83690; 99214

== ENCOUNTER 2022-09-23 13:11 | Outpatient (AMB) | payer MEDICAID, SELFPAY ==
--- NOTE | 2022-09-23 13:12 | MHC.OFFVIS ---
Intake Vital Signs 09/23/22 13:13 Height 5 ft 4 in Weight 163 lb 2.273 oz BMI 28.0 BP 120/74 Blood Pressure Location Lt brachial Position Sitting Pulse 75 Intake Visit Reasons: Diarrhea Intake Note: Carol presents in the office as a follow up for diarrhea. CC: She is having extreme diarrhea for the past 6 months. Every time she eats she has to run to the bathroom - nothing stays in her stomach. She states she feels burning in her intestines. She will go up to 3 times in a day and she feels tired all the time. 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 Qualified Code(s):?A09 - Infectious gastroenteritis and colitis, unspecified ?Plan: Salmonella found in stool back in the summer of 2021.? Patient states that she has been feeling great since the last time I seen her.? Patient reports to have normal bowel movement.? Discussed with patient eating food that is fully cooked especially meats and fish (2) GERD (gastroesophageal reflux disease): ?Code(s): K21.9 - Gastro-esophageal reflux disease without esophagitis ?Qualifiers: ?Esophagitis presence:?esophagitis presence not specified? Qualified Code(s):?K21.9 - Gastro-esophageal reflux disease without esophagitis ?Plan: Patient reports that her acid reflux symptoms are completely resolved right now.? Patient stopped taking omeprazole and Pepcid.? Reports to be feeling great.? Discussed with her avoiding dietary triggers and late night snacking. (3) Anemia: ?Code(s): D64.9 - Anemia, unspecified ?Qualifiers: ?Anemia type:?iron deficiency ?Plan: Mild anemia, patient does have a low iron will start her on iron supplement.? Patient will be seen by AUTOMOBI[employer] TAILLIGHT ASSEMBLER on the 14 of April.? Patient does have a history of heavy menstruations that last a long time.? Patient will call the office if she is unable to tolerate the iron.? I will see her in 6 months, sooner on as needed basis.? Patient is agreeable to this plan and verbalizes understanding of instructions.? She was given the opportunity to ask questions all questions answered.? TODAY'S VISIT: Patient is here today for follow-up. Patient has been treated for UTI back in June and vent patient has been not feeling very well reporting nausea, diarrhea. Patient reports nausea denies any urinary symptoms. States postprandial epigastric discomfort. Feels like she is unable to keep anything down. Patient states that no matter what she eats she will feel like that. As mentioned above patient was diagnosed with Salmonella when we did stool study back in February. Patient was feeling better, patient denies any recent travels or being around anyone with similar symptoms. Patient denies melena, hematochezia, unintentional weight loss or ribbon like stools. Reports dyspepsia without dysphagia or odynophagia. [facility] Medical History Alpha-thalassemia Anemia Surgical History (Updated 09/23/22 @ 13:14 by ANNIKA London) Hx of removal of cyst S/P tonsillectomy and adenoidectomy Family History Maternal Grandfather Prostate cancer Social History Alcohol intake: never Patient Tobacco Use Status: Former Tobacco user service: No Current occupational status: employed Current occupation: Manufacturing Current occupational exposures/hazards: No Female Reproductive History Menstrual Age of Menarche: 13 Review of Systems Const Denies weight gain and Denies weight loss ENT Reports no additional complaints, Denies dysphagia and Denies odynophagia Card Reports no additional complaints Resp Reports no additional complaints GI Reports abdominal pain (Epigastric), Denies belching, Denies melena, Reports bloating, Denies change in bowel habits, Denies dysphagia, Denies excessive flatus, Denies dyspepsia, Reports heartburn, Denies diarrhea, Reports loose stools, Denies nausea, Denies odynophagia and Denies vomiting Reports no additional complaints Musc Reports no additional complaints Neuro Reports no additional complaints Psych Reports no additional complaints Endo Reports no additional complaints Physical Exam Vital Signs: Last Vital Signs Pulse 75 09/23/22 13:13 BP 120/74 09/23/22 13:13 BMI result Body Mass Index 28.0 Assessment & Plan Assessment & Plan (1) Diarrhea: Code(s): R19.7 - Diarrhea, unspecified Qualifiers: Diarrhea type: unspecified type Qualified Code(s): R19.7 - Diarrhea, unspecified Plan: Will repeat GI panel. Will start patient on Citrucel to help her bulk her stools. Discussed with patient avoiding certain dietary triggers. Low FODMAP diet discussed with patient patient reports that diarrhea is usually postprandially (2) GERD (gastroesophageal reflux disease): Code(s): K21.9 - Gastro-esophageal reflux disease without esophagitis Qualifiers: Esophagitis presence: esophagitis presence not specified Qualified Code(s): K21.9 - Gastro-esophageal reflux disease without esophagitis Plan: Reports acid reflux will check for H pylori and treat empirically if positive. Will check lipase she does report epigastric discomfort. Discussed with patient avoiding dietary triggers and late night snacking. Staying upright for minimal 3 hours after meals discussed with patient. (3) Epigastric discomfort: Code(s): R10.13 - Epigastric pain Plan: Patient reports postprandial epigastric discomfort. Will check for H pylori. Start patient on omeprazole. Discussed with her avoiding dietary triggers. I will see her in 6 weeks, sooner on as needed basis. Patient might need to go for upper endoscopy to further evaluate if she continues with symptoms. Patient is agreeable to this plan and verbalizes understanding of instructions. She was given the opportunity to ask questions and all questions answered. Thank you for allowing me to participate in her care Orders: Orders GI Panel 09/23/22 R19.7 - Diarrhea, unspecified Liver Panel 09/23/22 R10.9 - Unspecified abdominal pain Vitamin B12 and Folate 09/23/22 R19.7 - Diarrhea, unspecified Vitamin D 25-OH (D2 and D3) 07/14/23 E55.9 - Vitamin D deficiency, unspecified Lipase 09/23/22 R10.9 - Unspecified abdominal pain H pylori Ag Stool 09/29/22 K21.9 - Gastro-esophageal reflux disease without esophagitis Medications: New methylcellulose (laxative) (Citrucel) 500 mg PO BID 60 tabs 2RF omeprazole 20 mg PO DAILY 30 caps 3RF K21.9 - Gastro-esophageal reflux disease without esophagitis Coding Level of Care Code Est Pt Level 4 (08126) Diagnoses Diarrhea R19.7 Diarrhea type: unspecified type GERD (gastroesophageal reflux disease) K21.9 Esophagitis presence: esophagitis presence not specified Epigastric discomfort R10.13 Time Spent (min) 40 Comment 25 minutes spent with patient and additional 15 minutes spent reviewing her records
[2022-09-23 13:13] VITALS: BP 120/74; PULSE 75; BMI 28.0
== END 2022-09-23 13:35 | disposition home or self-care (01) ==
PROVIDERS: Visit Provider Nurse Practitioner Family
DX: R19.7 Diarrhea, unspecified (principal); K21.9 Gastro-esophageal reflux disease without esophagitis; R10.13 Epigastric pain
CPT/HCPCS: 99214

== ENCOUNTER 2022-09-29 | Outpatient (REF) | payer MEDICAID, SELFPAY | END 2022-09-29 00:01 | disposition home or self-care (01) | LOC: HO.LNP | PROVIDERS: Visit Provider Nurse Practitioner Family | DX: R19.7 Diarrhea, unspecified (principal); R10.9 Unspecified abdominal pain | CPT/HCPCS: 87338 ==

== ENCOUNTER 2022-10-26 10:24 | Outpatient (REF) | payer MEDICAID, SELFPAY ==
--- NOTE | ~2022-10-26 | XR_ITS ---
EXAMINATION: XR HAND, RIGHT CLINICAL INFORMATION: Right hand pain. COMPARISON: None available. TECHNIQUE: PA, lateral, and oblique views of the right hand. FINDINGS: The bones and soft tissues are normal. No fracture. Alignment is anatomic. Joint spaces are maintained. No erosions or soft tissue calcifications. XR/XR hand RT min 3V IMPRESSION: Unremarkable right hand.
== END 2022-10-26 10:25 | disposition home or self-care (01) ==
LOC: HO.HHCX 10:24
PROVIDERS: Visit Provider Family Medicine
DX: M79.641 Pain in right hand (principal)
CPT/HCPCS: 73130

== ENCOUNTER 2022-11-22 13:34 | Outpatient (REF) | payer MEDICAID, SELFPAY ==
[2022-11-23 03:54] LABS: Syphilis Screen Nonreactive (Nonreactive)
[2022-11-23 04:04] LABS: ~HepC Num1 0.34 S/CO (0.00-0.79); ~Hepatitis C Antibody Nonreactive (Nonreactive)
[2022-11-23 07:09] LABS: CT PCR NOT DETECTED (Not Detect.); NG PCR NOT DETECTED (Not Detect.)
[2022-11-25 17:23] LABS: HIV RNA PCR Qn Copies Not Detected Copies/mL; HIV RNA PCR Qn Log Copies Not Detected Log cps/mL
== END 2022-11-22 13:35 | disposition home or self-care (01) ==
LOC: HO.HHCL 13:34
PROVIDERS: Visit Provider Student in an Organized Health Care Education/Training Program
DX: Z72.51 High risk heterosexual behavior (principal)
CPT/HCPCS: 0353U; 86780; 86803; 87536; 87900

== ENCOUNTER 2023-05-18 15:05 | Outpatient (REF) | payer OTHER, SELFPAY ==
--- NOTE | ~2023-05-18 | XR_ITS ---
EXAMINATION: XR CHEST CLINICAL INFORMATION: Ongoing chest pain after the fluid on month ago. COMPARISON: None available. TECHNIQUE: 2 views of the chest were obtained. FINDINGS: No significant abnormality is noted involving the heart, lungs, mediastinum, bony thorax or soft tissues. XR/XR chest 2V IMPRESSION: Unremarkable examination.
== END 2023-05-18 15:06 | disposition home or self-care (01) ==
LOC: HO.HHCX 15:05
PROVIDERS: Visit Provider Student in an Organized Health Care Education/Training Program
DX: R07.9 Chest pain, unspecified (principal)
CPT/HCPCS: 71046

== ENCOUNTER 2023-06-12 17:56 | Outpatient (REF) | payer MEDICAID, SELFPAY | END 2023-06-12 17:57 | disposition home or self-care (01) | LOC: HO.HHCLNP 17:56 | PROVIDERS: Visit Provider Family Medicine | DX: R39.9 Unspecified symptoms and signs involving the genitourinary system (principal) | CPT/HCPCS: 87086 ==

== ENCOUNTER 2023-06-13 12:58 | Outpatient (REF) | payer MEDICAID, SELFPAY | END 2023-06-13 12:59 | disposition home or self-care (01) | LOC: HO.HHCLNP 12:58 | PROVIDERS: Visit Provider Family Medicine | DX: Z13.89 Encounter for screening for other disorder (principal) ==

== ENCOUNTER 2023-06-22 07:58 | Outpatient (AMB) | payer OTHER, SELFPAY ==
--- NOTE | 2023-06-22 08:05 | A.OFFVIS_ITS ---
Intake Vital Signs 06/22/23 08:07 Height 5 ft 4 in Weight 167 lb 8.821 oz BMI 28.8 BP 116/55 L Blood Pressure Location Lt brachial Position Sitting Pulse 66 Intake Visit Reasons: pt req appointment Intake Note: Carol presents in the office as a follow up. CC: She states that she had been here with pains in her stomach - she states that is happening again. Burning in the epigastric. She states she has soft stool to diarrhea always. She states that none of the food that she eats sits well with her - she fells uncomfortable and bloating. 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 Will start patient on Citrucel to help her bulk her stools. Discussed with patient avoiding certain dietary triggers. Low FODMAP diet discussed with patient patient reports that diarrhea is usually postprandially GERD (gastroesophageal reflux disease) Reports acid reflux will check for H pylori and treat empirically if positive. Will check lipase she does report epigastric discomfort. Discussed with patient avoiding dietary triggers and late night snacking. Staying upright for minimal 3 hours after meals discussed with patient. Epigastric discomfort Patient reports postprandial epigastric discomfort. Will check for H pylori. Start patient on omeprazole. Discussed with her avoiding dietary triggers. I will see her in 6 weeks, sooner on as needed basis. Patient might need to go for upper endoscopy to further evaluate if she continues with symptoms. Patient is agreeable to this plan and verbalizes understanding of instructions. She was given the opportunity to ask questions and all questions answered. ? Thank you for allowing me to participate in her care Plan Orders Orders GI Panel 09/23/22 R19.7 - Diarrhea, unspecified Liver Panel 09/23/22 R10.9 - Unspecified abdominal pain Vitamin B12 and Folate 09/23/22 R19.7 - Diarrhea, unspecified Vitamin D 25-OH (D2 and D3) 09/23/22 E55.9 - Vitamin D deficiency, unspecified Lipase 09/23/22 R10.9 - Unspecified abdominal pain H pylori Ag Stool 09/29/22 K21.9 - Gastro-esophageal reflux disease without esophagitis Medications New methylcellulose (laxative) (Citrucel) 500 mg PO BID 60 tabs 2RF omeprazole 20 mg PO DAILY 30 caps 3RF K21.9 - Gastro-esophageal reflux disease without esophagitis TODAY'S VISIT Patient is here today for requested visit. Last seen last year patient did not follow-up as she was feeling better. Celiac workup and H pylori negative. Patient was taking omeprazole will done and Citrucel. Reports that similar s ymptoms as before are back. Patient has postprandial abdominal bloating. Reports to have diarrhea. Frequent loose stools. GI panel done last year and was negative. Patient reports epigastric pain postprandially and burning. Reports to be feeling nauseous at times but no vomiting. Currently is not taking any medications except for probiotic. Patient usually does not eat breakfast. For lunch she orders fast food, sometimes [place]. For dinner patient usually eats rice and beans with meat. Patient does not eat much fiber. Does not drink enough water PFSH Medical History Anemia Alpha-thalassemia Surgical History Hx of removal of cyst S/P tonsillectomy and adenoidectomy Family History Maternal Grandfather Prostate cancer Social History Alcohol intake: never Patient Tobacco Use Status: Former Tobacco user service: No Current occupational status: employed Current occupation: Manufacturing Current occupational exposures/hazards: No Female Reproductive History Menstrual Age of Menarche: 13 Review of Systems Const Denies weight gain and Denies weight loss ENT Reports no additional complaints, Denies dysphagia and Denies odynophagia Card Reports no additional complaints Resp Reports no additional complaints GI Reports abdominal pain, Denies belching, Denies melena, Reports bloating, Denies change in bowel habits, Denies dysphagia, Denies excessive flatus, Reports dyspepsia, Reports heartburn, Denies diarrhea, Reports loose stools, Denies nausea, Denies odynophagia and Denies vomiting Reports no additional complaints Musc Reports no additional complaints Neuro Reports no additional complaints Psych Reports no additional complaints Endo Reports no additional complaints Physical Exam Vital Signs: Last Vital Signs Pulse 66 06/22/23 08:07 BP 116/55 L 06/22/23 08:07 BMI result Body Mass Index 28.8 Const General: healthy appearing, no acute distress and well developed Nutritional Appearance: well nourished Orientation/consciousness: patient oriented x3 Resp Effort & Inspection: normal respiratory effort, able to speak in complete sentences, no tracheal deviation and symmetric chest movement Auscultation: clear to auscultation bilaterally Cardio Rate: regular rate GI Inspection: Yes normal to inspection and No distended Palpation (GI): Soft to palpation, not firm, nontender and No hepatosplenomegaly present Auscultation: normal bowel sounds General: Yes no CVA tenderness Back/Spine/Pelvis Back: no CVA tenderness Skin General skin exam: elasticity normal, turgor normal and dry skin Neuro General: patient oriented x3 Psych Appearance: grossly normal Mental Status: mental status grossly normal Judgement: Good judgement present (Psych) Assessment & Plan Assessment & Plan (1) Diarrhea: Code(s): R19.7 - Diarrhea, unspecified Qualifiers: Diarrhea type: functional diarrhea Qualified Code(s): K59.1 - Functional diarrhea (2) GERD (gastroesophageal reflux disease): Code(s): K21.9 - Gastro-esophageal reflux disease without esophagitis Qualifiers: Esophagitis presence: esophagitis presence not specified Qualified Code(s): K21.9 - Gastro-esophageal reflux disease without esophagitis (3) Epigastric discomfort: Code(s): R10.13 - Epigastric pain Plan Patient will start taking fiber supplement. Increase fiber in her diet. Avoid dietary triggers and late night snacking. Staying upright for minimum 3 hours after meals discussed with patient. Low FODMAP diet discussed with patient. List of food recommended as well as list of food to avoid given to patient. Patient had celiac workup that was negative in the past, negative for H pylori. Most likely symptoms related to her diet, however if patient will continue to feel same despite taking omeprazole for I will send her for upper endoscopy to further evaluate for gastritis, esophagitis, duodenitis, gastric or peptic ulcer. Patient will return in 2 months, sooner on as needed basis. Patient is agreeable to this plan and verbalizes understanding of instructions. She was given the opportunity to ask questions and all questions answered. Thank you for allowing me to participate in her care Medications: New omeprazole 20 mg PO DAILY 30 caps 3RF K21.9 - Gastro-esophageal reflux disease without esophagitis methylcellulose (laxative) (Citrucel) 500 mg PO DAILY 30 tabs 2RF K59.00 - C onstipation, unspecified Coding Level of Care Code Est Pt Level 4 (69227) Diagnoses Functional diarrhea K59.1 Diarrhea type: functional diarrhea Gastroesophageal reflux disease, unspecified whether esophagitis present K21.9 Esophagitis presence: esophagitis presence not specified Epigastric discomfort R10.13 Time Spent (min) 40 Comment 25 minutes spent with patient and additional 15 minutes spent reviewing her records
[2023-06-22 08:07] VITALS: BP 116/55; PULSE 66; BMI 28.8
== END 2023-06-22 08:28 | disposition home or self-care (01) ==
PROVIDERS: PCP General Practice; Visit Provider Nurse Practitioner Family
DX: K59.1 Functional diarrhea (principal); K21.9 Gastro-esophageal reflux disease without esophagitis; R10.13 Epigastric pain
CPT/HCPCS: 99214

== ENCOUNTER → 2023-06-22 07:58 | Outpatient (BNVA) | payer OTHER, SELFPAY | PROVIDERS: PCP General Practice; Visit Provider Nurse Practitioner Family | DX: R10.13 Epigastric pain (principal); K21.9 Gastro-esophageal reflux disease without esophagitis; K59.1 Functional diarrhea | CPT/HCPCS: 99212 ==

== ENCOUNTER 2023-06-23 10:40 | Outpatient (REF) | payer OTHER, SELFPAY ==
[2023-06-26 21:47] LABS: Immunoglobulin A 186 mg/dL (47-310); Transglutaminase IgA <1.0 U/mL
== END 2023-06-23 10:41 | disposition home or self-care (01) ==
LOC: HO.HHCL 10:40
PROVIDERS: Visit Provider Family Medicine
DX: K52.9 Noninfective gastroenteritis and colitis, unspecified (principal)
CPT/HCPCS: 36415; 82784; 86364

== ENCOUNTER 2023-08-13 21:02 | Emergency (ER) | payer OTHER, SELFPAY ==
[2023-08-13 21:43] VITALS: BP 127/50; PULSE 77; RESP 18; TEMP 37.1; O2SAT 99; BMI 27.5
[2023-08-13 22:48] LABS: MANUAL DIFF FLAG NO
[2023-08-13 22:50] LABS: Basophils Absolute Auto 0.1 X10*3/uL (0.0-0.2); Basophils Percent Auto 0.5 % (0-2); Eosinophils Absolute Auto 0.3 X10*3/uL (0.0-0.4); Eosinophils Percent Auto 3.3 % (0-4); Hematocrit 37.2 % (37.0-47.0); Hemoglobin 11.8 g/dl (12.0-16.0); Imm Gran Abs Auto 0.01 X10*3/uL (0.00-0.03); Imm Gran Pct Auto 0.1 % (0.0-0.4); Lymphocytes Absolute Auto 2.4 X10*3/uL (1.2-4.9); Lymphocytes Percent Auto 25.1 % (20-40); Mean Corpuscular HGB Conc 31.7 g/dl (31.0-35.0); Mean Corpuscular Hemoglobin 23.7 pg (27.0-33.0); Mean Corpuscular Volume 74.8 fL (80.0-98.0); Mean Platelet Volume 9.8 fL (9.4-12.3); Monocytes Absolute Auto 1.1 X10*3/uL (0.1-1.2); Monocytes Percent Auto 11.5 % (2-11); Neutrophils Absolute Auto 5.7 x10*3/uL (2.0-8.3); Neutrophils Percent Auto 59.5 % (45-73); Platelet Count 302 X10*3/uL (160-400); Red Blood Count 4.97 X10*6/uL (4.20-5.50); Red Cell Distribution Width 14.2 % (11.0-16.0); White Blood Count 9.5 X10*3/uL (4.8-10.8)
[2023-08-13 23:42] LABS: Alanine Aminotransferase 32 U/L (0-31); Albumin Level 4.6 g/dL (3.5-5.0); Alkaline Phosphatase 85 U/L (39-117); Anion Gap 13 (12-20); Aspartate Amino Transferase 25 U/L (5-31); Bilirubin Total 0.2 mg/dL (0.0-1.0); Blood Urea Nitrogen 8 mg/dL (9-16); Calcium 9.9 mg/dL (8.4-10.2); Carbon Dioxide 23 mmol/L (22-29); Chloride 105 mmol/L (96-108); Estimated Glomerular Filt Rate > 60; Glucose Random 87 mg/dL (60-115); Potassium 3.6 mmol/L (3.3-5.1); Sodium 137 mmol/L (135-145); Total Protein 8.2 g/dL (6.5-8.0)
--- NOTE | 2023-08-14 01:55 | ED_ITS ---
HPI - Extremity Problem General Chief complaint: Wound/Laceration Stated complaint: knee cyst infection? Time Seen by Provider: 08/14/23 01:55 Source: patient Mode of arrival: ambulatory Limitations: no limitations History of Present Illness ED Provider: nuno FUNES Narrative: Patient complaining of redness and pain behind of left knee after shaving about 5 days ago got worse in last 2 days with increased redness no pus discharge no open wound no fever no pain in the knee joint Related Data Home Medications ?Medication ?Instructions ?Recorded ?Confirmed L.acid,bul,para,rham-B.anim,long cap PO 06/22/23 10 billion cell-inulin 100 mg capsule (Probitoic Digestive Support (6 strain)) Previous Rx's ?Medication ?Instructions ?Recorded methylcellulose (laxative) 500 mg 500 mg PO DAILY #30 tabs 06/22/23 tablet (Citrucel) omeprazole 20 mg capsule,delayed 20 mg PO DAILY #30 caps 06/22/23 release cephalexin 500 mg capsule 500 mg PO QID 10 days #40 caps 08/14/23 doxycycline hyclate 100 mg tablet 100 mg PO BID #20 tabs 08/14/23 ibuprofen 600 mg tablet 600 mg PO Q6H PRN fever or pain 08/14/23 #30 tabs Allergies Allergy/AdvReac Type Severity Reaction Status Date / Time No Known Allergies Allergy Verified 08/13/23 21:46 [No Known Allergies*] Review of Systems 2 Review of Systems: Yes all other systems are reviewed and are negative PMFSH Past Medical History Medical History Anemia Alpha-thalassemia Surgical History Hx of removal of cyst S/P tonsillectomy and adenoidectomy Family History Family History Maternal Grandfather Prostate cancer Social History Social History Alcohol intake: never Patient Tobacco Use Status: Former Tobacco user Advance Directives: No Advance Directives Information Provided: No Do you have a plan to hurt others: No Plan service: No Current occupational status: employed Current occupation: Manufacturing Current occupational exposures/hazards: No Physical Exam 2 Vital Signs: Vital Signs: Last Vital Signs Temp 98.8 F 08/13/23 21:43 Pulse 76 08/14/23 01:56 Resp 18 08/14/23 01:56 BP 118/73 08/14/23 01:56 Pulse Ox 100 08/14/23 01:56 O2 Del Method Room Air 08/13/23 21:43 BMI result Body Mass Index 27.5 Appearance: Alert. Oriented X3. No acute distress. ENT: Pharynx normal. Oral Mucosa moist Neck: Normal inspection. Neck supple. CVS: Normal heart rate and rhythm. Pulses normal. Respiratory: No respiratory distress. Equal air entry bilateral, no wheezing/rales/rhonchi Skin: Skin warm and dry. Normal skin color. Normal skin turgor. Extremities: No lower extremity edema. Indurated area left popliteal area no open wound no fluctuance Neuro: Oriented X 3. Medical Decision Making Medical Decision Making [facility] Narrative: Patient with cellulitis with induration in left popliteal area will try doxycycline cephalexin for now advised patient to come back to the ER if worsening of the swelling or pain Lab Data [facility] Lab Attestation statement: I reviewed the patient's lab results. 08/13/23 22:45 08/13/23 23:18 Labs: Lab Results 08/13/23 08/13/23 Range/Units 22:45 23:18 WBC 9.5 (4.8-10.8) X10*3/uL RBC 4.97 (4.20-5.50) X10*6/uL Hgb 11.8 L (12.0-16.0) g/dl Hct 37.2 (37.0-47.0) % MCV 74.8 L (80.0-98.0) fL MCH 23.7 L (27.0-33.0) pg MCHC 31.7 (31.0-35.0) g/dl RDW 14.2 (11.0-16.0) % Plt Count 302 (160-400) X10*3/uL MPV 9.8 (9.4-12.3) fL Immature Gran % (Auto) 0.1 (0.0-0.4) % Neut % (Auto) 59.5 (45-73) % Lymph % (Auto) 25.1 (20-40) % [place] % (Auto) 11.5 H (2-11) % Eos % (Auto) 3.3 (0-4) % Baso % (Auto) 0.5 (0-2) % Lymph # (Auto) 2.4 (1.2-4.9) X10*3/uL [place] # (Auto) 1.1 (0.1-1.2) X10*3/uL Eos # (Auto) 0.3 (0.0-0.4) X10*3/uL Baso # (Auto) 0.1 (0.0-0.2) X10*3/uL Abs Immat Gran (auto) 0.01 (0.00-0.03) X10*3/uL Absolute Neuts (auto) 5.7 (2.0-8.3) x10*3/uL Absolute Nucleated RBC 0.000 (0.0-0.012) X10*3/uL Nucleated RBC % (auto) 0.0 (0.0-0.2) /100WBC Sodium 137 (135-145) mmol/L Potassium 3.6 (3.3-5.1) mmol/L Chloride 105 (96-108) mmol/L Carbon Dioxide 23 (22-29) mmol/L Anion Gap 13 (12-20) BUN 8 L (9-16) mg/dL Creatinine 0.73 (0.5-1.4) mg/dL Estim Creat Clear Calc 118.0 Estimated GFR > 60 Random Glucose 87 (60-115) mg/dL Calcium 9.9 D (8.4-10.2) mg/dL Total Bilirubin 0.2 (0.0-1.0) mg/dL AST 25 (5-31) U/L ALT 32 H (0-31) U/L Alkaline Phosphatase 85 (39-117) U/L Total Protein 8.2 H (6.5-8.0) g/dL Albumin 4.6 (3.5-5.0) g/dL Discharge Plan Discharge Clinical Impression: Cellulitis of left leg Patient Disposition: Home, Self-Care Instructions: Cellulitis (ED) Additional Instructions: Local care as advised Take antibiotic as prescribed Ibuprofen for pain Report to the ER if worsening of the pain or increase in swelling and redness Prescriptions: New cephalexin 500 mg capsule 500 mg PO QID 10 Days Qty: 40 0RF ibuprofen 600 mg tablet 600 mg PO Q6H PRN (Reason: fever or pain) Qty: 30 0RF doxycycline hyclate 100 mg tablet 100 mg PO BID Qty: 20 0RF No Action Probiotic Digest Supp (6-strn) 10 billion cell -100 mg capsule PO omeprazole 20 mg capsule,delayed release(DR/EC) 20 mg PO DAILY Qty: 30 3RF Citrucel 500 mg tablet 500 mg PO DAILY Qty: 30 2RF Print Language: Belizean
[2023-08-14 01:56] VITALS: BP 118/73; PULSE 76; RESP 18; O2SAT 100
[2023-08-14] MEDS: oxyCODONE HCl Immed Release 5 MG TABLET 10 MG PO (02:14)
[2023-08-14] MEDS: cephALEXin 500 MG CAPSULE PO (02:14)
[2023-08-14] MEDS: Doxycycline Monohydrate 100 MG CAPSULE PO (02:14)
[2023-08-14 02:17] VITALS: BP 128/78; PULSE 70; RESP 18; TEMP 36.8; O2SAT 99
--- OUTSIDE RECORDS SUMMARY | 2023-08-18 09:10 | XMS_ITS | Continuity of Care Document ---
Author Organization [facility] Address [address] [place] [id number]- Care Team Providers Care Java Web Engineer Name Role Phone Peterson LOUIE, Dionisio Primary Care Physician Unavaila ble Encounter [facility] Date(s): 09/21/22 - 10/21/[address] [address]- Allergies, Adverse Reactions, Alerts Substance Reaction Severity Status shellfish Active Nuts Active Medications ibuprofen 800 mg oral tablet 800 mg, 1, tablet, By Mouth, Every 8 hours, PRN, # 90 tablet, Refills 0, Tot. Refills 0, Maintenance, Pain , Mild, 08/11/22 18:21:00 EDT, Route to Pharmacy Electronically, [facility], Partial fill upon patient request if the prescription... Start Date: 08/11/22 Status: Ordered Liletta 52 mg intrauterine device See Instructions, to be placed in the OR, # 1 each, 0 Refills, Soft Stop, 08/11/22 14:00:00 EDT, [facility], 161.5, cm, 08/11/22 13:22:00 EDT, Height, 68.3, kg, 08/09/22 10:56:00 EDT, Dry Weight Start Date: 08/11/22 Status: Ordered MiraLax oral powder for reconstitution = 17 Gm, By Mouth, Daily, dissolve in water before taking, # 255 Gm, 0 Refills, Maintenance, 08/11/22 18:21:00 EDT, REC Powder, [facility], Partial fill upon patient request if the prescription is for a schedule II opioid drug., 17 Gm By... Start Date: 08/11/22 Status: Ordered oxyCODONE 5 mg oral tablet 5 mg, 1, tablet, By Mouth, Every 6 hours, PRN, # 10 tablet, Refills 0, Tot. Refills 0, Maintenance,for pain, 08/11/22 18:21:00 EDT, Route to Pharmacy Electronically, [facility], Partial fill upon patient request, 161.5, cm, 08/11/22 13:... Start Date: 08/11/22 Status: Ordered Tylenol 325 mg oral tablet 975 mg, 3, tablet, By Mouth, Every 6 hours, PRN, # 180 tablet, Refills 0, Tot. Refills 0, Maintenance, Pain , Mild, 08/11/22 18:21:00 EDT, Route to Pharmacy Electronically, [facility], Partial fill upon patient request if the prescriptio... Start Date: 08/11/22 Status: Ordered Patient Care team information Care Team Personnel Name: Trice Ambriz RN Position: Sandi SN RN Member Role: Primary Care Nurse Name: Dionisio Winkler NP Position: Reference Physician Member Role: PCP Address: Address: [address] [place] [address]- Care Team Related Persons Name: NIKKIE REECE Address: home [address] [address] Name: CESAR NATHAN Address: home [address] [place] [address]
--- OUTSIDE RECORDS SUMMARY | 2023-08-18 09:10 | XMS_ITS | Continuity of Care Document ---
Author Organization [facility] ter Address [address] [place] [address]- Care Team Providers Care Fleet Manager Name Role Phone Peterson LOUIE, Dionisio Primary Care Physician Unavaila ble Encounter [facility] Date(s): 08/11/22 - 08/11/[address] [address] Discharge Disposition: A-D/C Home Attending Physician: Emely Lundy MD Admitting Physician: Emely Lundy MD Referring Physician: Emely Lundy MD Allergies, Adverse Reactions, Alerts Substance Reaction Severity Status shellfish Active Nuts Active Medications ibuprofen 800 mg oral tablet 800 mg, 1, tablet, By Mouth, Every 8 hours, PRN, # 90 tablet, Refills 0, Tot. Refills 0, Maintenance, Pain , Mild, 08/11/22 18:21:00 EDT, Route to Pharmacy Electronically, [facility], Partial fill upon patient request if the prescription... Start Date: 08/11/22 Status: Ordered Liletta 52 mg intrauterine device See Instructions, to be placed in the OR, # 1 each, 0 Refills, Soft Stop, 08/11/22 14:00:00 EDT, [facility], 161.5, cm, 08/11/22 13:22:00 EDT, Height, 68.3, kg, 08/09/22 10:56:00 EDT, Dry Weight Start Date: 08/11/22 Status: Ordered MiraLax oral powder for reconstitution = 17 Gm, By Mouth, Daily, dissolve in water before taking, # 255 Gm, 0 Refills, Maintenance, 08/11/22 18:21:00 EDT, REC Powder, [facility], Partial fill upon patient request if the prescription is for a schedule II opioid drug., 17 Gm By... Start Date: 08/11/22 Status: Ordered oxyCODONE 5 mg oral tablet 5 mg, 1, tablet, By Mouth, Every 6 hours, PRN, # 10 tablet, Refills 0, Tot. Refills 0, Maintenance,for pain, 08/11/22 18:21:00 EDT, Route to Pharmacy Electronically, [facility], Partial fill upon patient request, 161.5, cm, 08/11/22 13:... Start Date: 08/11/22 Status: Ordered Oxycodone 5mg Oral Tablet (PACU ONLY) 5 mg, Tablet, By Mouth, Once, in PACU ONLY, PRN for Pain , Moderate, Routine, 08/11/22 15:47:00 EDT Start Date: 08/11/22 Stop Date: 08/11/22 Status: Completed Tylenol 325 mg oral tablet 975 mg, 3, tablet, By Mouth, Every 6 hours, PRN, # 180 tablet, Refills 0, Tot. Refills 0, Maintenance, Pain , Mild, 08/11/22 18:21:00 EDT, Route to Pharmacy Electronically, [facility], Partial fill upon patient request if the prescriptio... Start Date: 08/11/22 Status: Ordered Vital Signs Most recent to oldest [Reference Range]: 1 2 3 Height 161.5 cm (08/11/22 1:22 PM) 161.5 cm (08/09/22 10:56 AM) Weight 73 kg (08/11/22 1:22 PM) 68.3 kg (08/09/22 10:56 AM) Oxygen Saturation [94-100 %] 100 % (08/11/22 6:45 PM) 100 % (08/11/22 6:30 PM) 100 % (08/11/22 6:15 PM) Pulse Rate [55-90 bpm] 67 bpm (08/11/22 1:22 PM) Body Mass Index [18.5-24.99 kg/m2] 27.99 kg/m2 *H* (08/11/22 1:22 PM) 26.19 kg/m2 *H* (08/09/22 10:56 AM) Blood Pressure [90-138/55-84 mm Hg] 121/88mm Hg (08/11/22 6:45 PM) 129/83mm Hg (08/11/22 6:30 PM) 144/113mm Hg *H* (08/11/22 6:15 PM) Respiratory Rate [16-30 br/min] 12 br/min *L* (08/11/22 6:45 PM) 12 br/min *L* (08/11/22 6:30 PM) 15 br/min *L* (08/11/22 6:22 PM) Temperature [96.8-100.4 DegF] 97.9 DegF (08/11/22 6:45 PM) 96.7 DegF *L* (08/11/22 5:30 PM) 97.6 DegF (08/11/22 1:22 PM) Liters per Minute 6 L/min (08/11/22 5:30 PM) Mode of Delivery (Oxygen) Room air (08/11/22 6:45 PM) Room air (08/11/22 6:30 PM) Room air (08/11/22 6:15 PM) Blood pressure sites Arm, left (08/11/22 6:45 PM) Arm, left (08/11/22 6:30 PM) Arm, left (08/11/22 6:15 PM) Temperature Route Temporal (08/11/22 6:45 PM) Temporal (08/11/22 5:30 PM) Temporal (08/11/22 1:22 PM) Dry Weight 68.3 kg (08/09/22 10:56 AM) Weight Obtained Via Patient/family state d (08/09/22 10:56 AM) Dry Weight Obtained Via Patient/family s tated (08/09/22 10:56 AM) Note * Danita Bermudez RN: PERFORM Event Display: Discharge/Transfer Note Hospital Authored Date: [id number] Nursing Discharge Note Entered On: 08/11/2022 19:31 EDT Performed On: 08/11/2022 19:31 EDT by Danita Bermudez RN Nursing Discharge Note 2 Discharge Time : 08/11/2022 19:30 EDT Discharge Level of Care at Discharge : Home/Fci/Foster Care Patient Left Unit Via : Wheelchair Patient Accompanied Off Unit with : Significant other, Parent DC Instructions Provided & Signed by Pt : Yes Patient Understands D/C Instructions : Yes Verbalized Understanding of D/C Plan By : Patient Patient Instructions Discharge Signed : Yes Did Pt have Specialty Bed or Wound Vac : No Danita Bermudez RN - 08/11/2022 19:31 EDT * Danita Bermudez RN: PERFORM, MODIFY, MODIFY Event Display: Patient Education/Instruction Authored Date: [id number] Inpatient Adult Discharge Instructions [address] [address] Name: SUSI NATHAN : 2000 Visit: 08/11/2022 11:51:00 Current Date: 08/11/2022 18:30 Account: [id number] Inpatient Adult Discharge Instructions We would like to thank you for allowing us to assist you with your healthcare needs. The following includes patient education materials and information regarding your injury/illness. Our entire staffstrives to provide an excellent experience for our patients and their families. PLEASE ENSURE YOU FOLLOW-UP PER THE INSTRUCTIONS BELOW! ?? YOUR OPINION IS IMPORTANT TO US! Please complete the survey you may receive by mail or email. Your feedback will be used to make improvements to the healthcare experiences of our patients and their families. Surveys are administered by [employer] ?? If further treatment with your primary care physician or another doctor is recommended, it is important for you to keep the appointment. Call your primary care physician or return to the Emergency Department immediately if your condition worsens, fails to improve, or new symptoms develop. If you need to find a doctor, you can call [facility] for a referral at [phone] or toll free at [phone] or log in to [email or web address].. ?? You can view and manage your care through the patient portal or by using a health care ronald of your choosing. [email or web address] is a website that allows you to securely view your medical information including your hospital discharge summary, office visit summaries, medications and follow-up visits. You can also request appointments, renew medications, and request access to your medical information using a health care ronald of your choosing, or just ask a question. You can enroll at [email or web address] or register during your next office visit. You have been discharged from [facility], Patient Care Unit: [facility]. If you have any questions regarding these instructions after you leave, please call us and we will be happy to assist you. [facility] Your Care Team Attending Physician Nikkie ESPINOSA, Emely Silva Discharging Providers Nikkie ESPINOSA, Emely Silva Reason for Your Visit OVARIAN CYSTS CS DS Tests Performed Below is a partial list of the tests performed during your hospitalization. You may have had other tests and procedures not included in this list. Please discuss all test results with your provider. Primary Care Provider Peterson LOUIE, Dionisio Advance Directive . Discharge Vitals Temperature:??96.7 DegF??Low Height: 161.5 cm Pulse Rate: 67 bpm Weight: 73 kg Respiratory Rate:??15 br/min??Low Body Mass Index:??27.99 kg/m2??High Systolic Blood Pressure:??144 mm Hg??High Body surface area: 1.81 Diastolic Blood Pressure:??113 mm Hg??High ?? Oxygen Saturation: 100 % ?? Studies Pending All tests and labs ordered during this hospital stay have been completed unless listed below. Please discuss all pending results with your provider listed above in these instructions. ?? No incomplete studies found What to do next Instructions From Your Doctor Discharge Orders Instructions from your Care Team May take Tylenol when you get home. Next dose of Oxycodone is may be taken at 12:20AM Scheduled Follow-Up Appointments Monday 9:20 AM EDT ?? Where: [facility] [address] [place] [address]- Status: Pending You Need to Schedule the Following Appointments Follow Up with??Emely Lundy Where: [address] [place] [address] [place] [address]- Business (1) Follow Up with??Dionisio Winkler When:??In 0 days Where: [address] [place] [address]- Discharge Medications SUSI NATHAN :2000 Visit Date:08/11/2022 Medications: Please continue your medications until treatment is completed or stopped by your provider. Medications not listed below should be discontinued. Discuss any questions related to medications with your provider. What How Much When Instructions Next Dose New Acetaminophen (Tylenol 325 mg oral tablet) 3 tab(s) Oral Every 6 hours as needed for Pain , Mild Pickup at [facility] 3 May??start when needed at home. New Ibuprofen (ibuprofen 800 mg oral tablet) 1 tab(s) Oral Every 8 hours as needed for Pain , Mild Take with food. Pickup at [place] [address] Start this evening. New Levonorgestrel (Liletta 52 mg intrauterine device) See instructions to be placed in the OR ?? Pickup at [place] [address] New Oxycodone (oxyCODONE 5 mg oral tablet) 1 tab(s) Oral Every 6 hours as needed for for pain Take with food.?? May cause constipation. Pickup at [place] [address] Next dose may be taken at 12:20 AM New Polyethylene Glycol 3350 (MiraLax oral powder for reconstitution) 17 gram Oral Daily dissolve in water before taking ?? Pickup at [place] [address] Start [facility] Pharmacy Information [place] [address]: [address], [place] [id number] [phone] Test Results Below is a partial list of the most recent Laboratory test results done prior to this discharge. You may have had other tests and procedures not included in this list. Please discuss all test resultswith your provider. Allergies (NKA means No Known Allergies) Nuts shellfish Problems No qualifying data available Education Materials Below is the list of Educational Leaflet Providered with your Discharge Instructions. Surgery Medical Daystay Surgical Overnight Discharge Instructions?? Valuables and Belongings I fully understand and agree that [facility] accepts no responsibility for all my personal property including clothing, toilet articles, radios, jewelry, dentures, hearing aids, rings, money, or any other property that is in my possession or is brought to me after admission. I understand certain valuables may be placed in a hospital safe for a short period of time. I understand that the hospital is not liable for loss or damage due to accident, fire, or other natural occurrence while said property is in the safe. I accept full responsibility for any personal property that I keep with me, and will not hold the hospital responsible in case of loss or disappearance. I acknowledge that i have been encouraged to send valuables and belongings home. ?? Review of Valuable and Belonging List: With patient Disposition of Belongings: Other: under stretcher Possessions released to: under stretcher Date for Pt to Sign Valuables/Belongings: 08/11/22 13:26:00 ?? Valuables & Belongings ?? Clothes Electronic devices Jewelry Monetary Items Personal devices Miscellaneous Medications (Valuables) Valuables at Bedside Jacket, Pants, Shirt, Shoes, Undergarments Cell phone ? Glasses ? Valuables Sent Home ? Valuables Sent to Security ? Other Discharge Information ? Pulmonary Rehab Status?? Pulmonary Rehab Discharge Status?? Respiratory Rate:??15 br/min??Low ? Common Emergency Awareness Tips IS IT A STROKE? Act FAST and Check for these signs: FACE Does the face look uneven? ARM Does one arm drift down? SPEECH Does their speech sound strange? TIME Call at any sign of stroke ?? Heart Attack Signs Chest discomfort: Most heart attacks involve discomfort in the center of the chest and lasts more than a few minutes, or goes away and comes back. It can feel like uncomfortable pressure, squeezing, fullness or pain. Discomfort in upper body: Symptoms can include pain or discomfort in one or both arms, back, neck, jaw or stomach. Shortness of breath: With or without discomfort. Other signs: Breaking out in a cold sweat, nausea, or lightheaded. Remember, MINUTES DO MATTER. If you experience any of these heart attack warning signs, call to get immediate medical attention! ?? Smoking can increase your chances of developing chronic health problems and can cause harmful effects to other family members in your house. If you smoke, you are strongly encouraged to quit. Please call [employer] at [phone] or [phone] ([phone]) or log in to [email or web address] for referrals to smoking cessation programs. ?? 313 Suicide & Crisis Lifeline is available 03/10 if you or someone you know needs to find a reason to keep living. By calling 182 you'll be connected to a skilled, trained counselor at a crisis center in your area. INPATIENT DISCHARGE INSTRUCTIONS SIGNATURE PAGE SUSI NATHAN Location:[facility] Registration Date and Time:08/11/2022 11:51 EDT Primary Care Physician: Dionisio Winkler NP Attending Physician: Emely Lundy MD, I SUSI NATHAN, have received the above patient education materials/instructions and have verbalized understanding. If ambulance or transport services are being used I further acknowledge being given a choice of service. ?? If you need to contact me, please call me at this number: . Patient/Fashion Photographer Name: Patient/Fashion Photographer Signature: Relationship to Patient: Witness Name/Signature: Date: * Danita Bermudez RN: PERFORM, SIGN, VERIFY Event Display: Patient Education Handout Authored Date: [id number] * Danita Bermudez RN: PERFORM Event Display: Patient Education Leaflets Authored Date: [id number] NSAID Analgesic Schedule ?? 604 NSAID???s Analgesic Schedule ?? Pain is the primary source of illness following your procedure and can include dehydration, difficulty and painful swallowing, and weight loss. These symptoms can lead to increased post-operative visits and hospital readmission. The best way to control pain is to take pain medications regularly. Your doctor has recommended both Ibuprofen and Acetaminophen (generic/store brands are okay, too). These can be picked up over the counter at your pharmacy of choice. Follow the instructions on the bottle to determine the proper dosage to give. The simplest way to take these medications it to rotate the two at 3-hour intervals. Here is a sample diagram. The time you take your medications may vary from this example. Do not give Ibuprofen more than every 6 hours or Acetaminophen every 4 hours. Do not give Acetaminophen if your doctor has given you a prescription that contains Acetaminophen. ? * Danita Bermudez RN: PERFORM Event Display: Patient Education Leaflets Authored Date: [id number] Surgery Medical Daystay Surgical Overnight Discharge Instructions ?? 295 Medical Daystay/Surgical Overnight Discharge Instructions ? Since your coordination and judgment may be altered by medication and/or anesthesia, a responsible adult must drive you home from the hospital. ? If you have received medication for pain or sedation while under our care, you should not drive, operate machinery, drink alcohol, or sign any legal documents for 24 hours.?? You should have someone with you at home tonight. ? Remain at home the day of discharge.?? You may be up and about unless otherwise instructed by your physician. ? You may resume your daily prescription medication schedule.?? Any depressant medication should be avoided for 24 hours unless otherwise instructed by your surgeon or anesthesiologist. ? Call your physician for a follow-up appointment.? If you experience unusual or severe pain not relied by your pain medication, excessive bleedingor drainage, persistent nausea and vomiting, excessive swelling or redness, foul odor from incisionsite or fever over 100.6F, you need to call your physician. ? A follow-up phone call by a nurse will be made the day after your procedure.?? If you have stayed with us over night, you will not be receiving a follow-up phone call. ? Nausea and vomiting are a common side effect of prescription pain medication.?? We recommend that pills are not taken on an empty stomach.?? While taking any prescription pain medication you should not drive or drink alcohol. ? * Danita Bermudez RN: PERFORM Event Display: Patient Education Leaflets Authored Date: [id number] Surgery Medical Daystay Surgical Overnight Discharge Instructions ?? 295 Medical Daystay/Surgical Overnight Discharge Instructions ? Since your coordination and judgment may be altered by medication and/or anesthesia, a responsible adult must drive you home from the hospital. ? If you have received medication for pain or sedation while under our care, you should not drive, operate machinery, drink alcohol, or sign any legal documents for 24 hours.?? You should have someone with you at home tonight. ? Remain at home the day of discharge.?? You may be up and about unless otherwise instructed by your physician. ? You may resume your daily prescription medication schedule.?? Any depressant medication should be avoided for 24 hours unless otherwise instructed by your surgeon or anesthesiologist. ? Call your physician for a follow-up appointment.? If you experience unusual or severe pain not relied by your pain medication, excessive bleedingor drainage, persistent nausea and vomiting, excessive swelling or redness, foul odor from incisionsite or fever over 100.6F, you need to call your physician. ? A follow-up phone call by a nurse will be made the day after your procedure.?? If you have stayed with us over night, you will not be receiving a follow-up phone call. ? Nausea and vomiting are a common side effect of prescription pain medication.?? We recommend that pills are not taken on an empty stomach.?? While taking any prescription pain medication you should not drive or drink alcohol. ? Patient Care team information Care Team Personnel Name: Trice Ambriz RN Position: ESMER MONTERO RN Member Role: Primary Care Nurse Name: Dionisio Winkler NP Position: Reference Physician Member Role: PCP Address: Address: [address] [place] [address]- Care Team Related Persons Name: NIKKIE REECE Address: home [address] [address] Name: CESAR NATHAN Address: home [address] [place] [address]
--- OUTSIDE RECORDS SUMMARY | 2023-08-18 09:11 | XMS_ITS | Continuity of Care Document ---
Author Organization [facility] Address [address] [place] [address]- Care Team Providers Care Nursery Helper Name Role Phone Peterson LOUIE, Dionisio Primary Care Physician Unavaila ble Encounter [facility] Date(s): 10/02/22 - 11/01/[address] [address]- Allergies, Adverse Reactions, Alerts Substance Reaction Severity Status shellfish Active Nuts Active Medications Apri 0.15 mg-0.03 mg oral tablet 1 tablet, By Mouth, Daily, # 84 tablet, 3 Refills, Maintenance, 11/01/22 16:09:00 EDT, Tablet, [id number], Partial fill upon patient request if the prescription is for a schedule II opioid drug., 1 tablet By Mouth Daily, 161.5, cm, 11/01/22 13... Start Date: 11/01/22 Status: Ordered ibuprofen 800 mg oral tablet 800 mg, 1, tablet, By Mouth, Every 8 hours, PRN, # 90 tablet, Refills 0, Tot. Refills 0, Maintenance, Pain , Mild, 08/11/22 18:21:00 EDT, Route to Pharmacy Electronically, [facility], Partial fill upon patient request if the prescription... Start Date: 08/11/22 Status: Ordered Liletta 52 mg intrauterine device See Instructions, to be placed in the OR, # 1 each, 0 Refills, Soft Stop, 08/11/22 14:00:00 EDT, [facility], 161.5, cm, 08/11/22 13:22:00 EDT, Height, 68.3, kg, 08/09/22 10:56:00 EDT, Dry Weight Start Date: 08/11/22 Status: Ordered MiraLax oral powder for reconstitution = 17 Gm, By Mouth, Daily, dissolve in water before taking, # 255 Gm, 0 Refills, Maintenance, 08/11/22 18:21:00 EDT, REC Powder, [facility], Partial fill upon patient request if the prescription is for a schedule II opioid drug., 17 Gm By... Start Date: 08/11/22 Status: Ordered oxyCODONE 5 mg oral tablet 5 mg, 1, tablet, By Mouth, Every 6 hours, PRN, # 10 tablet, Refills 0, Tot. Refills 0, Maintenance,for pain, 08/11/22 18:21:00 EDT, Route to Pharmacy Electronically, [facility], Partial fill upon patient request, 161.5, cm, 08/11/22 13:... Start Date: 08/11/22 Status: Ordered Tylenol 325 mg oral tablet 975 mg, 3, tablet, By Mouth, Every 6 hours, PRN, # 180 tablet, Refills 0, Tot. Refills 0, Maintenance, Pain , Mild, 08/11/22 18:21:00 EDT, Route to Pharmacy Electronically, [facility], Partial fill upon patient request if the prescriptio... Start Date: 08/11/22 Status: Ordered Patient Care team information Care Team Personnel Name: Trice Ambriz RN Position: Sandi MONTERO RN Member Role: Primary Care Nurse Name: Dionisio Winkler NP Position: Reference Physician Member Role: PCP Address: Address: [address] [place] [address]- Care Team Related Persons Name: NIKKIE REECE Address: home [address] [address] Name: CESAR NATHAN Address: home [address] [place] [address]
--- OUTSIDE RECORDS SUMMARY | 2023-08-18 09:11 | XMS_ITS | Continuity of Care Document ---
Author Organization [facility] Address [address] [place] [address]- Care Team Providers Care Derrick Car Operator Name Role Phone Dionisio Winkler NP Primary Care Physician Unavaila ble Encounter [facility] Date(s): 12/16/22 - 01/15/[address] [address]- Allergies, Adverse Reactions, Alerts Substance Reaction Severity Status shellfish Active Nuts Active Patient Care team information Care Team Personnel Name: Trice Ambriz RN Position: S SN RN Member Role: Primary Care Nurse Name: Dionisio Winkler NP Position: Reference Physician Member Role: PCP Care Team Related Persons Name: NIKKIE REECE Address: home [address] [place] [address] Name: CESAR NATHAN Address: home [address] [place] [address]
--- OUTSIDE RECORDS SUMMARY | 2023-08-18 09:11 | XMS_ITS | Continuity of Care Document ---
Author Organization [facility] Address [address] [place] [address]- Care Team Providers Care School Resource Officer Name Role Phone Peterson LOUIE, Dionisio Primary Care Physician Unavaila ble Encounter [facility] Date(s): 07/12/22 - 08/11/[address] [address]- Allergies, Adverse Reactions, Alerts Substance Reaction Severity Status shellfish Active Nuts Active Medications ibuprofen 800 mg oral tablet 800 mg, 1, tablet, By Mouth, Every 8 hours, PRN, # 90 tablet, Refills 0, Tot. Refills 0, Maintenance, Pain , Mild, 08/11/22 18:21:00 EDT, Route to Pharmacy Electronically, [facility], Partial fill upon patient request if the prescription... Start Date: 08/11/22 Status: Ordered Liletta 52 mg intrauterine device See Instructions, to be placed in the OR, # 1 each, 0 Refills, Soft Stop, 08/11/22 14:00:00 EDT, [facility], 161.5, cm, 08/11/22 13:22:00 EDT, Height, 68.3, kg, 08/09/22 10:56:00 EDT, Dry Weight Start Date: 08/11/22 Status: Ordered MiraLax oral powder for reconstitution = 17 Gm, By Mouth, Daily, dissolve in water before taking, # 255 Gm, 0 Refills, Maintenance, 08/11/22 18:21:00 EDT, REC Powder, [facility], Partial fill upon patient request if the prescription is for a schedule II opioid drug., 17 Gm By... Start Date: 08/11/22 Status: Ordered oxyCODONE 5 mg oral tablet 5 mg, 1, tablet, By Mouth, Every 6 hours, PRN, # 10 tablet, Refills 0, Tot. Refills 0, Maintenance,for pain, 08/11/22 18:21:00 EDT, Route to Pharmacy Electronically, [facility], Partial fill upon patient request, 161.5, cm, 08/11/22 13:... Start Date: 08/11/22 Status: Ordered Tylenol 325 mg oral tablet 975 mg, 3, tablet, By Mouth, Every 6 hours, PRN, # 180 tablet, Refills 0, Tot. Refills 0, Maintenance, Pain , Mild, 08/11/22 18:21:00 EDT, Route to Pharmacy Electronically, [facility], Partial fill upon patient request if the prescriptio... Start Date: 08/11/22 Status: Ordered Patient Care team information Care Team Personnel Name: Trice Ambriz RN Position: Sandi SN RN Member Role: Primary Care Nurse Name: Dionisio Winkler NP Position: Reference Physician Member Role: PCP Address: Address: [address] [place] [phone]- Care Team Related Persons Name: NIKKIE REECE Address: home [address] [address] Name: CESAR NATHAN Address: home [address] [place] [address]
--- OUTSIDE RECORDS SUMMARY | 2023-08-18 09:11 | XMS_ITS | Continuity of Care Document ---
Author Organization [facility] Address [address] [place] [address]- Care Team Providers Care Museum Guide Name Role Phone Peterson LOUIE, Dionisio Primary Care Physician Unavaila ble Encounter [facility] Date(s): 11/01/22 - 11/01/[address] [address] Discharge Disposition: A-D/C Home Attending Physician: Robbie Cesar MD Admitting Physician: Robbie Cesar MD Referring Physician: Robbie Cesar MD Allergies, Adverse Reactions, Alerts Substance Reaction Severity Status shellfish Active Nuts Active Medications Apri 0.15 mg-0.03 mg oral tablet 1 tablet, By Mouth, Daily, # 84 tablet, 3 Refills, Maintenance, 11/01/22 16:09:00 EDT, Tablet, [id number], Partial fill upon patient request if the prescription is for a schedule II opioid drug., 1 tablet By Mouth Daily, 161.5, cm, 11/01/22 13... Start Date: 11/01/22 Status: Ordered ibuprofen 800 mg oral tablet 800 mg, 1, tablet, By Mouth, Every 8 hours, PRN, # 90 tablet, Refills 0, Tot. Refills 0, Maintenance, Pain , Mild, 08/11/22 18:21:00 EDT, Route to Pharmacy Electronically, [facility], Partial fill upon patient request if the prescription... Start Date: 08/11/22 Status: Ordered Liletta 52 mg intrauterine device See Instructions, to be placed in the OR, # 1 each, 0 Refills, Soft Stop, 08/11/22 14:00:00 EDT, [facility], 161.5, cm, 08/11/22 13:22:00 EDT, Height, 68.3, kg, 08/09/22 10:56:00 EDT, Dry Weight Start Date: 08/11/22 Status: Ordered MiraLax oral powder for reconstitution = 17 Gm, By Mouth, Daily, dissolve in water before taking, # 255 Gm, 0 Refills, Maintenance, 08/11/22 18:21:00 EDT, REC Powder, [facility], Partial fill upon patient request if the prescription is for a schedule II opioid drug., 17 Gm By... Start Date: 08/11/22 Status: Ordered oxyCODONE 5 mg oral tablet 5 mg, 1, tablet, By Mouth, Every 6 hours, PRN, # 10 tablet, Refills 0, Tot. Refills 0, Maintenance,for pain, 08/11/22 18:21:00 EDT, Route to Pharmacy Electronically, [facility], Partial fill upon patient request, 161.5, cm, 08/11/22 13:... Start Date: 08/11/22 Status: Ordered Tylenol 325 mg oral tablet 975 mg, 3, tablet, By Mouth, Every 6 hours, PRN, # 180 tablet, Refills 0, Tot. Refills 0, Maintenance, Pain , Mild, 08/11/22 18:21:00 EDT, Route to Pharmacy Electronically, [facility], Partial fill upon patient request if the prescriptio... Start Date: 08/11/22 Status: Ordered Vital Signs Most recent to oldest [Reference Range]: 1 Height 161.5 cm (11/01/22 1:58 PM) Weight 74.3 kg (11/01/22 1:54 PM) Oxygen Saturation [94-100 %] 98 % (11/01/22 1:54 PM) Pulse Rate [55-90 bpm] 66 bpm (11/01/22 1:54 PM) Blood Pressure [90-138/55-84 mm Hg] 119/ 68mm Hg (11/01/22 1:54 PM) Respiratory Rate [16-30 br/min] 17 br/mi n (11/01/22 1:54 PM) Temperature [96.8-100.4 DegF] 98.2 DegF (11/01/22 1:54 PM) Blood pressure sites Arm, right (11/01/22 1:54 PM) Temperature Route Oral (8/22/23 1:54 PM) Weight Obtained Via Standing scale (11/01/22 1:54 PM) History and physical note * Teresa Rai DO: PERFORM Event Display: History and Physical Hospital Authored Date: [id number] Patient: ??NATHANSUSI ? Age:??21 Years?Sex:??Female?:??2000?? History of Present Illness Susi is a 21-year-old G0 who presents with vaginal spotting, discharge, and cramping.?? She states that she has had light spotting and clear discharge for the past 2 days.?? She reports associatedvaginal itching.?? She is sexually active, with last intercourse last night.?? No new sexual partners.?? She had a Liletta IUD placed on August 11??and feels like??it is causing her pain during intercourse.?? She would like to have the IUD removed.?? She is interested in trying control pills forcontraception. Review of Systems Constitutional:??Denies fever or chills, weakness, fatigue HEENT:??Denies headache, dizziness Cardiovascular: Denies??chest pain or palpitations. Respiratory:??Denies shortness of breath, cough Gastrointestinal: Denies abdominal pain, N/V, C/D CALCINER OPERATOR: Denies vaginal heavy bleeding or??lesions Ext: Denies LE swelling or calf pain ? Physical Exam Vitals & Measurements T:??98.2?F?? HR:??66??(Peripheral)?? RR:??17?? BP:??119/68?? SpO2:??98%?? HT:??161.5??cm?? WT:??74.3??kg?? General: pleasant, alert, cooperative, NAD HEENT: Normocephalic/atraumatic Cardiac: RRR, S1&2, no murmurs Respiratory: Equal air entry bilaterally with symmetrical chest wall movements, no crackles or wheeze Abdominal: Soft, non-tender, non-distended. No masses or??organomegaly appreciated. No guarding or rebound. [facility] Firer/Fireman: Speculum: Normal appearing perineum, vulva, urethral meatus, vaginal and cervical mucosa, no lesions appreciated,??scant brown??blood in vaginal??vault. No bleeding, clot or tissue noted from??cervical os, os visually closed,??nulliparous-appearing cervix. Blue IUD strings seen protruding 3 cm fromthe os. Extremities: Symmetrical muscle bulk, no visible erythema or edema.?? Psych: Mood and affect stable, appearance appropriate, good eye contact, talkative ?? TONYA prep:??Positive for pseudohyphae and yeast buds Wet prep:??Negative for clue cells and trichomonads Assessment/Plan Assessment:??Patient is a 21-year-old G0 who presents with vaginal spotting, discharge, and cramping.?She has a Liletta IUD in place and her test is negative today.??Vital signs are normal.??Her infectious work-up today is positive for yeast.??She was offered a course of vaginal terconazole or oral Diflucan for treatment, and she prefers Diflucan.??She was given a one-time dose of Diflucan 150 mg and??WETU??She was advised to call if her symptoms do not improve in 3 days for an additional dose.?She desires IUD removal today.??We discussed risks of removal including bleeding, cramping,??and damage to surrounding structures.??A consent was signed for intrauterine device removal .??IUD was removed as below. ?? Procedure in detail Patient placed in dorsal lithotomy Speculum placed in vagina and cervix visualized Blue strings grasped with ring forceps??and gentle traction applied IUD easily removed and noted to be intact Speculum removed Patient tolerated well ?? The patient has no contraindications to estrogen and is a viable candidate for??combined oral contraception.??We discussed how to take the??pill daily??and to??take the additional dose if she forgetsa dose.??We discussed common side effects including headaches, nausea, and vomiting.??She was advised that she may have irregular bleeding for the first??3 to 6 months on the pill.??She understands and she would like to??initiate??pills at this time.??A prescription was sent to her pharmacy for Apri. She was advised to use a backup method, such as a condom, for one week after starting the pill. She understands and agrees with the plan. ?? Contraception management (Z30.9):? -Rx for Apri sent to pharmacy ?? IUD contraception (Z97.5):? -Liletta removed today, per patient request ?? Yeast vaginitis (B37.31):? -Diflucan 150 mg given in WETU -pt encouraged to call if symptoms continue for additional dose ?? Patient seen and plan discussed with Dr. Jung, attending physician. OB History History?(0,0,0,0)?No previous pregnancies history have been recorded Active Problem List Active Problem List?? No qualifying data available. Procedure/Surgical History No qualifying data available. Home Medications Acetaminophen: 975 mg = 3 tablet, By Mouth, Every 6 hours, PRN (Pain , Mild) Desogestrel-Ethinyl Estradiol: 1 tablet, By Mouth, Daily Ibuprofen: 800 mg = 1 tablet, By Mouth, Every 8 hours, PRN (Pain , Mild) Levonorgestrel: See Instructions, to be placed in the OR Oxycodone: 5 mg = 1 tablet, By Mouth, Every 6 hours, PRN (for pain) Polyethylene Glycol 3350: 17 Gm, By Mouth, Daily, dissolve in water before taking Allergies Nuts shellfish Family History No family history recorded. * Aditi Jung MD: PERFORM Event Display: History and Physical Hospital Authored Date: [id number] Attending Attestation:??I have seen and evaluated this patient independently from the resident physician. ??I have discussed the case and its management with the resident and agree with the findings and plan as documented in the resident???s note. Note * Galilea Garcia V: PERFORM Event Display: Discharge/Transfer Note Hospital Authored Date: [id number] Nursing Discharge Note Entered On: 11/01/2022 16:29 EDT Performed On: 11/01/2022 16:29 EDT by Galilea Garcia V Nursing Discharge Note 2 Discharge Time : 11/01/2022 16:29 EDT Discharge Level of Care at Discharge : Home/Long-Term/Foster Care Patient Left Unit Via : Ambulatory Patient Accompanied Off Unit with : Responsible adult DC Instructions Provided & Signed by Pt : Yes Patient Understands D/C Instructions : Yes Patient Instructions Discharge Signed : Yes Did Pt have Specialty Bed or Wound Vac : No Galilea Garcia V - 11/01/2022 16:29 EDT * Galilea Garcia V: PERFORM Event Display: Patient Education/Instruction Authored Date: [id number] Inpatient Adult Discharge Instructions [address] [address] Name: SUSI NATHAN : 2000 Visit: 11/01/2022 13:32:00 Current Date: 11/01/2022 16:06 Account: [id number] Inpatient Adult Discharge Instructions We would like [...] and their families. Surveys are administered by [employer] ?? If further treatment with your primary care physician or another doctor is recommended, it is important for you to keep the appointment. Call your primary care physician or return to the Emergency Department immediately if your condition worsens, fails to improve, or new symptoms develop. If you need to find a doctor, you can call [facility] for a referral at [phone] or toll free at [phone]) or log in to [email or web address].. ?? You can view and manage your care through the patient portal or by using a health care ronald of your choosing. [facility] is a website that allows you to securely view your medical information including your hospital discharge summary, office visit summaries, medications and follow-up visits. You can also request appointments, renew medications, and request access to your medical information using a health care ronald of your choosing, or just ask a question. You can enroll at [email or web address] or register during your next office visit. You have been discharged from [facility], Patient Care Unit: WETU1. If you have any questions regarding these instructions after you leave, please call us and we will be happy to assist you. [facility] Your Care Team Attending Physician Arsenio ESPINOSA, Robbie Martinez Reason for Admission CALCINER OPERATOR IUD PAIN CRAMPSBLEEDING DISCHARGE Tests Performed Below is a partial list of the tests performed during your hospitalization. You may have had other tests and procedures not included in this list. Please discuss all test results with your provider. Primary Care Provider Peterson LOUIE, Dionisio Advance Directive Health Care Proxy on File No Discharge Vitals Temperature: 98.2 DegF Height: 161.5 cm Pulse Rate: 66 bpm Weight: 74.3 kg Respiratory Rate: 17 br/min ?? Systolic Blood Pressure: 119 mm Hg ?? Diastolic Blood Pressure: 68 mm Hg ?? Oxygen Saturation: 98 % ?? Studies Pending All tests and labs ordered during this hospital stay have been completed unless listed below. Please discuss all pending results with your provider listed above in these instructions. ?? No incomplete studies found What to do next Instructions From Your Doctor Discharge Orders Scheduled Follow-Up Appointments Monday 1:40 PM EDT ?? With: Xochilt Nayak Where: [facility] Firer/Fireman [address] [place] [address]- Status: Pending You Need to Schedule the Following Appointments Follow Up with??[facility] Why: Please call if an appointment is needed ?? Where: [address] [place] [address]- Discharge Medications SUSI NATHAN :2000 Visit Date:11/01/2022 Medications: Please continue your medications until treatment is completed or stopped by your provider. Medications not listed below should be discontinued. Discuss any questions related to medications with your provider. What How Much When Instructions Next Dose Unchanged Acetaminophen (Tylenol 325 mg oral tablet) 3 tab(s) Oral Every 6 hours as needed for Pain , Mild Unchanged Ibuprofen (ibuprofen 800 mg oral tablet) 1 tab(s) Oral Every 8 hours as needed for Pain , Mild Unchanged Levonorgestrel (Liletta 52 mg intrauterine device) See instructions to be placed in the OR ?? Unchanged Oxycodone (oxyCODONE 5 mg oral tablet) 1 tab(s) Oral Every 6 hours as needed for for pain Unchanged Polyethylene Glycol 3350 (MiraLax oral powder for reconstitution) 17 gram Oral Daily dissolve in water before taking ?? Test Results Below is a partial list [...] Educational Leaflet Providered with your Discharge Instructions. Vaginal Infection: Yeast (Candidiasis)?? Valuables and Belongings I fully understand and agree that [facility] accepts no responsibility for all my personal [...] encouraged to send valuables and belongings home. ? Other Discharge Information ? Pulmonary Rehab Status?? Pulmonary Rehab Discharge Status?? Respiratory Rate: 17 br/min ? Common Emergency Awareness Tips IS IT [...] are strongly encouraged to quit. Please call [facility] [employer] [facility] at [phone] or [phone]) or log in to [email or web address] for referrals to smoking cessation programs. ?? 272 Suicide & Crisis Lifeline is available 03/10 if you or someone you know needs to find a reason to keep living. By calling 132 you'll be connected to a skilled, trained counselor at a crisis center in your area. INPATIENT DISCHARGE INSTRUCTIONS SIGNATURE ТАТЬЯНА SUSI NATHAN Location:[facility] Registration Date and Time:11/01/2022 13:32 EDT Primary Care Physician: Dionisio Winkler NP Attending Physician: Robbie Cesar MD, I VENITA SUSI, have received the above patient education materials/instructions and have verbalized understanding. If ambulance or transport services are being used I further acknowledge being given a choice of service. ?? If you need to contact me, please call me at this number: . Patient/Mercury Cracking Tester Name: Patient/Mercury Cracking Tester Signature: Relationship to Patient: Witness Name/Signature: Date: * Galilea Garcia V: PERFORM Event Display: Patient Education Leaflets Authored Date: [id number] Vaginal Infection: Yeast (Candidiasis) ?? [address] Infecci??n vaginal: Levaduras (candidiasis) La infecci??n por levaduras se produce cuando las levaduras naturales de la vagina se multiplican ycomienzan a atacar los tejidos vaginales. La levadura es un tipo de hongo. Estas infecciones suelenser causadas por un tipo de levadura llamado Nidia albicans. Otras especies de levadura tambi??n pueden ocasionarlas. El uso reciente de antibi??ticos, los lavados vaginales o rafal mayor frecuencia de las relaciones sexuales son factores que pueden aumentar la probabilidad de infecci??n. Las infecciones por levadura son m??s frecuentes en mujeres obesas, embarazadas o que tienen diabetes o el sistema inmunitario suprimido. S??ntomas de infecci??n por levaduras ??? Flujo vaginal grumoso o poco espeso de color ca, que podr??a tener la apariencia del reques??n ??? Ligero olor, o abner??n olor ??? Comez??n o ardor intensos en la vagina ??? Ardor al orinar ??? Hinchaz??n y enrojecimiento de la vulva ??? Dolor toine el acto sexual ?? Tratamiento de la infecci??n por levaduras La infecci??n por levaduras suele tratarse con rafal crema vaginal contra los hongos (antimic??yoan).A veces, en vez de eso, se recetan pastillas antimic??jany. Tonie el tratamiento: ??? Termine todo renee medicamento, aunque se le quiten los s??ntomas. ??? Apl??quese la crema antes de acostarse. Ti? ?ndase despu??s de la aplicaci??n para que no se le chorree. ??? No se charla lavados vaginales ni seponga tampones. ??? No conf??e en un diafragma o condones, ya que la crema podr??a debilitarlos. ??? Evite el coito si as?? se lo indica renee proveedor de atenci??n m??dica. ?Puedo tratarme rafal infecci??n por levaduras yo misma? Hable con renee proveedor de atenci??n m??dica para averiguar si usted puede usar medicamentos de venta toribio para tratarse renee infecci??n por levadura. La posibilidad de que usted se trate a s?? misma puede depender de factores fred: ??? Infecciones previas por levaduras. ??? Riesgo de contraer rafal infecci??n de trasmisi??n sexual (ITS). Si navya s??ntomas no desaparecen o regresan despu??s del tratamiento, llame a renee proveedor de atenci??n m??dica. ?? Last Reviewed Date: 2019 ?? [id number] [employer]. Todos los derechos reservados. Esta informaci??n no pretende sustituir la atenci??n m??dica profesional. S??lo renee m??dico puede diagnosticar y tratar un problema de ingrid. ?? Patient Care team information Care Team Personnel Name: Trice Ambriz RN Position: [facility] SN RN Member Role: Primary Care Nurse Name: Dionisio Winkler NP Position: Reference Physician Member Role: PCP Address: Address: [address] [place] [address]- Name: Galilea Garcia V Position: [facility] OB RN Member Role: Patient Care Provider Care Team Related Persons Name: NIKKIE REECE Address: home [address] [address] Name: CESAR NATHAN Address: home [address] [place] [address]
--- OUTSIDE RECORDS SUMMARY | 2023-08-18 09:11 | XMS_ITS | Continuity of Care Document ---
Author Organization [facility] Address [address] [place] [address]- Care Team Providers Care Upset Operator Name Role Phone Dionisio Winkler NP Primary Care Physician Unavaila ble Encounter [facility] Date(s): 07/05/22 - 08/04/[address] [address]- Allergies, Adverse Reactions, Alerts Substance Reaction Severity Status shellfish Active Nuts Active Problem List Condition Confirmation Course Effective Dates Status Health St [facility] Informant Severe obesity Confirmed Active Patient Care team information Care Team Personnel Name: Trice Ambriz RN Position: [facility] SN RN Member Role: Primary Care Nurse Name: Dionisio Winkler NP Position: Reference Physician Member Role: PCP Address: Address: [address] [place] [address]- Care Team Related Persons Name: NIKKIE REECE Address: home [address] [address] Name: CESAR NATHAN Address: home [address] [place] [address]
--- OUTSIDE RECORDS SUMMARY | 2023-08-18 09:11 | XMS_ITS | Continuity of Care Document ---
Author Organization [facility] Address [address] [place] [address]- Care Team Providers Care Station Cook Name Role Phone Peterson LOUIE, Dionisio Primary Care Physician Unavaila ble [place] [facility] [place](s): 10/25/22 - 11/24/[address] [address]- Allergies, Adverse Reactions, Alerts Substance Reaction Severity Status shellfish Active Nuts Active Medications Apri 0.15 mg-0.03 mg oral tablet 1 tablet, By Mouth, Daily, # 84 tablet, 3 Refills, Maintenance, 11/01/22 16:09:00 EDT, Tablet, [id number], Partial fill upon patient request if the prescription is for a schedule II opioid drug., 1 tablet By Mouth Daily, 161.5, cm, 11/01/22 13... Start Date: 11/01/22 Status: Ordered ibuprofen 800 mg oral tablet 800 mg, 1, tablet, By Mouth, Every 8 hours, PRN, # 90 tablet, Refills 0, Tot. Refills 0, Maintenance, Pain , Mild, 08/11/22 18:21:00 EDT, Route to Pharmacy Electronically, [facility], Partial fill upon patient request if the prescription... Start Date: 08/11/22 Status: Ordered Liletta 52 mg intrauterine device See Instructions, to be placed in the OR, # 1 each, 0 Refills, Soft Stop, 08/11/22 14:00:00 EDT, [facility], 161.5, cm, 08/11/22 13:22:00 EDT, Height, 68.3, kg, 08/09/22 10:56:00 EDT, Dry Weight Start Date: 08/11/22 Status: Ordered MiraLax oral powder for reconstitution = 17 Gm, By Mouth, Daily, dissolve in water before taking, # 255 Gm, 0 Refills, Maintenance, 08/11/22 18:21:00 EDT, REC Powder, [facility], Partial fill upon patient request if the prescription is for a schedule II opioid drug., 17 Gm By... Start Date: 08/11/22 Status: Ordered oxyCODONE 5 mg oral tablet 5 mg, 1, tablet, By Mouth, Every 6 hours, PRN, # 10 tablet, Refills 0, Tot. Refills 0, Maintenance,for pain, 08/11/22 18:21:00 EDT, Route to Pharmacy Electronically, [facility], Partial fill upon patient request, 161.5, cm, 08/11/22 13:... Start Date: 08/11/22 Status: Ordered Tylenol 325 mg oral tablet 975 mg, 3, tablet, By Mouth, Every 6 hours, PRN, # 180 tablet, Refills 0, Tot. Refills 0, Maintenance, Pain , Mild, 08/11/22 18:21:00 EDT, Route to Pharmacy Electronically, [facility], Partial fill upon patient request if the prescriptio... Start Date: 08/11/22 Status: Ordered Patient Care team information Care Team Personnel Name: Trice Ambriz RN Position: ESMER MONTERO RN Member Role: Primary Care Nurse Name: Dionisio Winkler NP Position: Reference Physician Member Role: PCP Care Team Related Persons Name: NIKKIE REECE Address: home [address] [address] Name: CESAR NATHAN Address: home [address] [place] [address]
--- OUTSIDE RECORDS SUMMARY | 2023-08-18 09:11 | XMS_ITS | Continuity of Care Document ---
Author Organization [facility] Address [address] [place] [address]- Care Team Providers Care Pt Sitter Name Role Phone Dionisio Winkler NP Primary Care Physician Unavaila ble Encounter [facility] Date(s): 12/13/22 - 01/12/[address] [address]- Attending Physician: Admtr, Ar8 Admitting Physician: Admtr, Ar8 Referring Physician: Admtr, Ar8 Allergies, Adverse Reactions, Alerts Substance Reaction Severity Status shellfish Active Nuts Active Patient Care team information Care Team Personnel Name: Trice Ambriz RN Position: [facility]i MONTERO RN Member Role: Primary Care Nurse Name: Dionisio Winkler NP Position: Reference Physician Member Role: PCP Care Team Related Persons Name: NIKKIE REECE Address: home [address] [address] Name: CESAR NATHAN Address: home [address] [place] [id number]
--- OUTSIDE RECORDS SUMMARY | 2023-08-18 09:11 | XMS_ITS | Continuity of Care Document ---
Author Organization [facility] Address [address] [place] [address]- Care Team Providers Care Stocking And Box Shop Supervisor Name Role Phone Dionisio Winkler NP Primary Care Physician Unavaila ble Encounter [facility] [place] [facility] [id number] Date(s): 10/25/22 - 12/11/[address] [address]- Attending Physician: Not on Staff, Attending MD Allergies, Adverse Reactions, Alerts Substance Reaction Severity Status shellfish Active Nuts Active Medications Apri 0.15 mg-0.03 mg oral tablet 1 tablet, By Mouth, Daily, # 84 tablet, 3 Refills, Maintenance, 11/01/22 16:09:00 EDT, Tablet, [id number], Partial fill upon patient request if the prescription is for a schedule II opioid drug., 1 tablet By Mouth Daily, 161.5, cm, 11/01/22 13... Start Date: 11/01/22 Status: Ordered ibuprofen 800 mg oral tablet 800 mg, 1, tablet, By Mouth, Every 8 hours, PRN, # 90 tablet, Refills 0, Tot. Refills 0, Maintenance, Pain , Mild, 08/11/22 18:21:00 EDT, Route to Pharmacy Electronically, [facility], Partial fill upon patient request if the prescription... Start Date: 08/11/22 Status: Ordered Liletta 52 mg intrauterine device See Instructions, to be placed in the OR, # 1 each, 0 Refills, Soft Stop, 08/11/22 14:00:00 EDT, [facility], 161.5, cm, 08/11/22 13:22:00 EDT, Height, 68.3, kg, 08/09/22 10:56:00 EDT, Dry Weight Start Date: 08/11/22 Status: Ordered MiraLax oral powder for reconstitution = 17 Gm, By Mouth, Daily, dissolve in water before taking, # 255 Gm, 0 Refills, Maintenance, 08/11/22 18:21:00 EDT, REC Powder, [facility], Partial fill upon patient request if the prescription is for a schedule II opioid drug., 17 Gm By... Start Date: 08/11/22 Status: Ordered oxyCODONE 5 mg oral tablet 5 mg, 1, tablet, By Mouth, Every 6 hours, PRN, # 10 tablet, Refills 0, Tot. Refills 0, Maintenance,for pain, 08/11/22 18:21:00 EDT, Route to Pharmacy Electronically, [facility], Partial fill upon patient request, 161.5, cm, 08/11/22 13:... Start Date: 08/11/22 Status: Ordered Tylenol 325 mg oral tablet 975 mg, 3, tablet, By Mouth, Every 6 hours, PRN, # 180 tablet, Refills 0, Tot. Refills 0, Maintenance, Pain , Mild, 08/11/22 18:21:00 EDT, Route to Pharmacy Electronically, [facility], Partial fill upon patient request if the prescriptio... Start Date: 08/11/22 Status: Ordered Patient Care team information Care Team Personnel Name: Trice Ambriz RN Position: [facility]i MONTERO RN Member Role: Primary Care Nurse Name: Dionisio Winkler NP Position: Reference Physician Member Role: PCP Care Team Related Persons Name: NIKKIE REECE Address: home [address] [address] Name: CESAR NATHAN Address: home [address] [place] [address]
--- OUTSIDE RECORDS SUMMARY | 2023-08-18 09:11 | XMS_ITS | Continuity of Care Document ---
Author Organization [facility] Address [address] [place] [address]- Care Team Providers Care Accessibility Lift Technician Name Role Phone Dionisio Winkler NP Primary Care Physician Unavaila ble Encounter [facility] Date(s): 06/23/22 - 07/23/[address] [address]- Allergies, Adverse Reactions, Alerts Substance Reaction Severity Status shellfish Active Nuts Active Problem List Condition Confirmation Course Effective Dates Status Health St atus Informant Severe obesity Confirmed Active Patient Care team information Care Team Personnel Name: Trice Ambriz RN Position: Sandi MONTERO RN Member Role: Primary Care Nurse Name: Dionisio Winkler NP Position: Reference Physician Member Role: PCP Address: Address: [address] [place] [address]- Care Team Related Persons Name: NIKKIE REECE Address: home [address] [address] Name: CESAR NATHAN Address: home [address] [place] [address]
--- OUTSIDE RECORDS SUMMARY | 2023-08-18 09:11 | XMS_ITS | Continuity of Care Document ---
Author Organization [facility] Address [address] [place] [address]- Care Team Providers Care Hand Scraper Name Role Phone Peterson LOUIE, Dionisio Primary Care Physician Unavaila ble Encounter [facility] Date(s): 08/15/22 - 09/14/[address] [address]- Allergies, Adverse Reactions, Alerts Substance Reaction Severity Status shellfish Active Nuts Active Medications ibuprofen 800 mg oral tablet 800 mg, 1, tablet, By Mouth, Every 8 hours, PRN, # 90 tablet, Refills 0, Tot. Refills 0, Maintenance, Pain , Mild, 08/11/22 18:21:00 EDT, Route to Pharmacy Electronically, [facility], Partial fill upon patient request if the prescription... Start Date: 08/11/22 Status: Ordered Liletta 52 mg intrauterine device See Instructions, to be placed in the OR, # 1 each, 0 Refills, Soft Stop, 08/11/22 14:00:00 EDT, [facility], 161.5, cm, 08/11/22 13:22:00 EDT, Height, 68.3, kg, 08/09/22 10:56:00 EDT, Dry Weight Start Date: 08/11/22 Status: Ordered MiraLax oral powder for reconstitution = 17 Gm, By Mouth, Daily, dissolve in water before taking, # 255 Gm, 0 Refills, Maintenance, 08/11/22 18:21:00 EDT, REC Powder, [facility], Partial fill upon patient request if the prescription is for a schedule II opioid drug., 17 Gm By... Start Date: 08/11/22 Status: Ordered oxyCODONE 5 mg oral tablet 5 mg, 1, tablet, By Mouth, Every 6 hours, PRN, # 10 tablet, Refills 0, Tot. Refills 0, Maintenance,for pain, 08/11/22 18:21:00 EDT, Route to Pharmacy Electronically, [facility], Partial fill upon patient request, 161.5, cm, 08/11/22 13:... Start Date: 08/11/22 Status: Ordered Tylenol 325 mg oral tablet 975 mg, 3, tablet, By Mouth, Every 6 hours, PRN, # 180 tablet, Refills 0, Tot. Refills 0, Maintenance, Pain , Mild, 08/11/22 18:21:00 EDT, Route to Pharmacy Electronically, [facility], Partial fill upon patient request if the prescriptio... Start Date: 08/11/22 Status: Ordered Patient Care team information Care Team Personnel Name: Trice Ambriz RN Position: [facility]i SN RN Member Role: Primary Care Nurse Name: Dionisio Winkler NP Position: Reference Physician Member Role: PCP Address: Address: [address] [place] [address]- Care Team Related Persons Name: NIKKIE REECE Address: home [address] [address] Name: CESAR NATHAN Address: home [address] [place] [id number]
== END 2023-08-14 02:18 | disposition home or self-care (01) ==
PROVIDERS: Emergency Provider Internal Medicine; PCP General Practice
DX: L03.116 Cellulitis of left lower limb (principal)
CPT/HCPCS: 36415; 80053; 85025; 99283; 99284